=== PATIENT | female | born 1970 | race Two or more races ===

== ENCOUNTER 2020-11-11 11:30 | Outpatient (REF) | payer MEDICAID, SELFPAY ==
--- NOTE | ~2020-11-11 | MM_ITS ---
EXAMINATION: MM SCREENING DIGITAL BREAST TOMOSYNTHESIS, BILATERAL CLINICAL INFORMATION: Screening. Asymptomatic. The lifetime risk of breast cancer based on the Tyrer-Cuzick Model is 7%. COMPARISON: Mammography: 02/26/2019, 02/09/2018, 02/07/2017 TECHNIQUE: Digital breast tomosynthesis is performed in both the craniocaudal and mediolateral oblique views along with computer-aided detection (CAD). Synthesized 2D images are generated from the tomosynthesis. FINDINGS: There are scattered areas of fibroglandular density (ACR BI-RADS breast composition Category b). There are no significant masses, abnormal calcifications, or other abnormalities. There are incidental benign scattered bilateral round and rim calcifications. The axilla and skin contours are unremarkable. MM/MM tomosynthesis screening BI IMPRESSION: No mammographic evidence of malignancy. ASSESSMENT: BI-RADS 2: Benign RECOMMENDATION: Routine annual mammography screening. This patient's information was entered into a reminder system with a target due date for their next mammogram.
== END 2020-11-11 11:31 | disposition home or self-care (01) ==
LOC: HO.MAMMO 11:30
PROVIDERS: Visit Provider Internal Medicine
DX: Z12.31 Encounter for screening mammogram for malignant neoplasm of breast (principal)
CPT/HCPCS: 77063; 77067

== ENCOUNTER 2021-02-12 09:52 | Outpatient (REF) | payer MEDICAID, SELFPAY ==
[2021-02-12 11:06] LABS: MANUAL DIFF FLAG NO
[2021-02-12 11:11] LABS: Basophils Percent Auto 0.5 % (0-2); Eosinophils Absolute Auto 0.1 X10*3/uL (0.0-0.4); Eosinophils Percent Auto 1.8 % (0-4); Hematocrit 34.6 % (37-47); Hemoglobin 10.7 g/dl (12.0-16.0); Imm Gran Abs Auto 0.03 X10*3/uL (0.00-0.03); Imm Gran Pct Auto 0.4 % (0.0-0.4); Lymphocytes Absolute Auto 1.1 X10*3/uL (1.2-4.9); Lymphocytes Percent Auto 14.7 % (20-40); Mean Corpuscular HGB Conc 30.9 g/dl (31.0-35.0); Mean Corpuscular Hemoglobin 25.2 pg (27.0-33.0); Mean Corpuscular Volume 81.6 fL (80-98); Mean Platelet Volume 9.4 fL (9.4-12.3); Monocytes Absolute Auto 0.4 X10*3/uL (0.1-1.2); Neutrophils Absolute Auto 5.9 X10*3/uL (2.0-8.3); Neutrophils Percent Auto 77.6 % (45-73); Platelet Count 363 X10*3/uL (160-400); Red Blood Count 4.24 X10*6/uL (4.20-5.50); Red Cell Distribution Width 13.6 % (11.0-16.0); White Blood Count 7.6 X10*3/uL (4.8-10.8)
[2021-02-12 11:38] LABS: Alanine Aminotransferase 12 U/L (0-31); Albumin Level 4.3 g/dL (3.5-5.0); Alkaline Phosphatase 71 U/L (39-117); Anion Gap 13 (12-20); Aspartate Amino Transferase 12 U/L (5-31); Bilirubin Total 0.9 mg/dL (0.0-1.0); Blood Urea Nitrogen 10 mg/dL (9-16); Calcium 9.9 mg/dL (8.4-10.2); Carbon Dioxide 26 mmol/L (22-29); Chloride 107 mmol/L (96-108); Cholesterol 192 mg/dL; Estimated Glomerular Filt Rate > 60; Glucose Random 98 mg/dL (60-115); HDL Cholesterol 56 mg/dL; LDL Cholesterol Calculated 116 mg/dl; Potassium 5.1 mmol/L (3.3-5.1); Sodium 141 mmol/L (135-145); Total Protein 6.9 g/dL (6.5-8.0); Triglycerides 100 mg/dL
== END 2021-02-12 09:53 | disposition home or self-care (01) ==
LOC: HO.LAB 09:52
PROVIDERS: PCP Internal Medicine; Visit Provider Internal Medicine
DX: D50.8 Other iron deficiency anemias (principal); E78.00 Pure hypercholesterolemia, unspecified
CPT/HCPCS: 36415; 80053; 80061; 85025

== ENCOUNTER 2021-03-17 14:31 | Outpatient (REF) | payer MEDICAID, SELFPAY ==
[2021-03-18 04:03] LABS: CT PCR NOT DETECTED (Not Detect.); NG PCR NOT DETECTED (Not Detect.)
[2021-03-18 10:00] LABS: BV Int Neg Control Negative (Negative); BV Int Pos Control Positive (Positive)
[2021-03-19 20:22] LABS: HPV mRNA E6/E7 rflx Not Detected (Not Detected)
== END 2021-03-17 14:32 | disposition home or self-care (01) ==
LOC: HO.LAB 14:31
PROVIDERS: Visit Provider Advanced Practice Midwife
DX: Z01.419 Encounter for gynecological examination (general) (routine) without abnormal findings (principal); Z12.4 Encounter for screening for malignant neoplasm of cervix; Z20.2 Contact with and (suspected) exposure to infections with a predominantly sexual mode of transmission; Z87.42 Personal history of other diseases of the female genital tract
CPT/HCPCS: 87480; 87491; 87510; 87591; 87624; 87660; 88142

== ENCOUNTER 2021-04-20 21:30 | Emergency (ER) | payer MEDICAID, SELFPAY ==
--- NOTE | ~2021-04-20 | XR_ITS ---
EXAMINATION: XR CHEST CLINICAL INFORMATION: Chest tightness COMPARISON: None TECHNIQUE: Frontal view of the chest was obtained. FINDINGS: No significant abnormality is noted involving the heart, lungs, mediastinum, bony thorax or soft tissues. XR/XR chest 1V IMPRESSION: Unremarkable examination.
[2021-04-20 21:36] VITALS: BP 138/91; PULSE 79; RESP 20; TEMP 36.9; O2SAT 100; BMI 30.1
--- NOTE | 2021-04-20 23:39 | ED_ITS ---
HPI - Anxiety General Chief Complaint: Anxiety Stated Complaint: chest tightness Time Seen by Provider: 04/20/21 21:54 Source: patient Mode of arrival: ambulatory Limitations: no limitations History of Present Illness HPI narrative: 50 y/o female with history fo depression and anxiety presents to the ER with acute onset of an anxiety attack that happened about 3 hours ago. She states she has been under a lot of stress lately and she is very anxious about COVID-19. She has not been vaccinated and is worried about the effects of the vaccine. She has not had an anxiety attack in several months but overall her depression and anxiety have been worsening. She was recently prescribed PRN hydroxyzine that she took when the anxiety started around 8:50pm. Her symptoms started improving shortly after. She reports at the time of the attack she had rapid breathing, chest tightness and racing heart. All of which have resolved completely. MD complaint: anxiety Onset (ago): hour(s) Symptoms: dyspnea, chest pain and palpitations Severity: moderate Quality: improving Place: home History of similar episodes: Yes Provoking factors: emotional stress Relieving factors: medication Exacerbating factors: nothing Associated symptoms: denies other symptoms Related Data Home Medications Medication Instructions Recorded Confirmed ferrous sulfate 325 mg (65 mg 325 mg PO DAILY 03/17/21 03/17/21 iron) tablet,delayed release fluoxetine 10 mg tablet 10 mg PO DAILY 03/17/21 03/17/21 ibuprofen 800 mg tablet 800 mg PO Q8H 03/17/21 03/17/21 Allergies Allergy/AdvReac Type Severity Reaction Status Date / Time No Known Allergies Allergy Verified 04/20/21 21:43 Review of Systems Review of Systems: Constitutional: No Fever, No Chills Cardiovascular: No Chest Pain, No SOB Respiratory: No Cough, No Sputum, No Wheezing, No dyspnea Gastrointestinal: No Nausea, No Vomiting, No abdominal Pain Musculoskeletal: No joint pain, No Myalgias Skin: No Skin Lesions, No rash Neuro: No Weakness, No Numbness Psych: + Anxiety/Panic, + Depression, No SI Heme/Lymph: No Bruising, No Lymphadenopathy PMFSH Past Medical History Medical History (Updated 04/20/21 @ 23:41 by BESSIE Machado) Anemia Anxiety Depression HTN (hypertension) Surgical History History of cholecystectomy Social History Social History (Updated 03/17/21 @ 14:49 by Kerry Talbot [facility]) Alcohol intake: never Patient Tobacco Use Status: Never used Tobacco Advance Directives: No Advance Directives Information Provided: No Patient : No Gender identity: female Physical Exam Vital Signs: Vital Signs: Last Vital Signs Temp 98.5 F 04/20/21 21:36 Pulse 79 04/20/21 21:36 Resp 20 04/20/21 21:36 BP 138/91 H 04/20/21 21:36 Pulse Ox 100 04/20/21 21:36 Body Mass Index 30.1 Appearance: Alert. Oriented X3. No acute distress. Eyes: Pupils equal, round and reactive to light. ENT: Pharynx normal. Neck: Normal inspection. Neck supple. CVS: Normal heart rate and rhythm. Pulses normal. No chest wall tenderness Respiratory: No respiratory distress. Breath sounds normal. Skin: Skin warm and dry. Normal skin color. Normal skin turgor. No rashes. Extremities: No lower extremity edema. Neuro: Oriented X 3. No motor deficit. No sensory deficit. Speaks in complete sentences. Course Course Course Narrative: 50 y/o female presenting to the ER with acute anxiety attack, now resolved after hydroxyzine. She appears well. CXR is normal. Doubt cardiac etiology, no risk factors, no current symptoms. She is stable for discharge home with plans to f/u with her therapist and provider for possible uptitration of her antidepressant. Patient agreeable with plan. Critical Care Time Critical Care Time Critical Care Time: No Discharge Plan Discharge Clinical Impression: Acute anxiety Patient Disposition: Home, Self-Care Instructions: Anxiety (ED) Additional Instructions: Your symptoms were most likely due to anxiety attack. After your took your medication for anxiety, Hydroxyzine your symptoms improved. Continue to take this medication as needed for anxiety. Recommend following up with your doctor and your therapist. Recommend getting the COVID vaccination. Prescriptions: No Action ibuprofen 800 mg tablet 800 mg PO Q8H RF: 0 ferrous sulfate 325 mg (65 mg iron) tablet,delayed release (DR/EC) 325 mg PO DAILY RF: 0 fluoxetine 10 mg tablet 10 mg PO DAILY RF: 0 Referrals: Hawa Sinclair MD [Primary Care Provider] - 2 days (anxiety)
== END 2021-04-20 23:55 | disposition home or self-care (01) ==
PROVIDERS: Emergency Provider Student in an Organized Health Care Education/Training Program; PCP Internal Medicine
DX: F41.9 Anxiety disorder, unspecified (principal); I10 Essential (primary) hypertension
CPT/HCPCS: 71045; 99283

== ENCOUNTER 2021-10-18 18:16 | Emergency (ER) | payer MEDICAID, SELFPAY ==
[2021-10-18 18:20] VITALS: BP 149/85; PULSE 89; RESP 18; TEMP 36.6; O2SAT 97; BMI 31.8
--- NOTE | 2021-10-18 18:58 | ED.GENADULT ---
HPI - General Adult General Chief complaint: Ear Problems Stated complaint: fb stuck in ear Time Seen by Provider: 10/18/21 18:31 Source: patient Mode of arrival: ambulatory Limitations: no limitations History of Present Illness HPI narrative: 50-year-old female presents to the ED for possible foreign body in right ear. Patient states she was taking a shower and cleaning her ears with a Q-tip she thinks part of the Q-tip remain in her right ear. Patient denies any ear pain or loss of hearing. Patient states no other complaints Related Data Home Medications Medication Instructions Recorded Confirmed ferrous sulfate 325 mg (65 mg 325 mg PO DAILY 03/17/21 03/17/21 iron) tablet,delayed release fluoxetine 10 mg tablet 10 mg PO DAILY 03/17/21 03/17/21 ibuprofen 800 mg tablet 800 mg PO Q8H 03/17/21 03/17/21 Allergies Allergy/AdvReac Type Severity Reaction Status Date / Time No Known Allergies Allergy Verified 10/18/21 18:20 Review of Systems Review of Systems: Foreign body in right ear Yes all other systems are reviewed and are negative [facility] Past Medical History Medical History (Updated 10/18/21 @ 19:09 by BESSIE Franco) Anemia Anxiety Depression HTN (hypertension) Surgical History History of cholecystectomy Social History Social History (Updated 03/17/21 @ 14:49 by Kerry Talbot CMA) Alcohol intake: never Patient Tobacco Use Status: Never used Tobacco Advance Directives: No Advance Directives Information Provided: No Gender identity: Female Physical Exam Vital Signs: Vital Signs: Last Vital Signs Temp 97.9 F 10/18/21 18:20 Pulse 89 10/18/21 18:20 Resp 18 10/18/21 18:20 BP 149/85 H 10/18/21 18:20 Pulse Ox 97 10/18/21 18:20 BMI result Body Mass Index 31.8 Const: General: cooperative, healthy appearing, comfortable, no acute distress and well developed Orientation/consciousness: oriented to person, oriented to place, oriented to time and patient oriented x3 HENMT: Other: Both ears negative for qtip or any other foreign object. Head: Yes normal to inspection, Yes No palpable skull fracture present, Yes normocephalic and Yes atraumatic Ears: hearing grossly normal bilaterally, external ears normal, TM's normal bilaterally, TM normal on the right, EAC's normal, mastoids normal and no periauricular adenopathy Eyes: General: appearance normal, both eyes and all related structures Neck: Neck: Yes normal visual inspection, Yes full ROM, Yes no lymphadenopathy, Yes no meningeal signs, Yes trachea midline, Yes supple, No anterior neck swelling and No tender Chest: Chest palpation & inspection: normal inspection of the chest and normal palpation of entire chest wall Resp: Effort & Inspection: normal respiratory effort and able to speak in complete sentences Auscultation: clear to auscultation bilaterally Cardio: Jugular venous distension: no JVD Heart sounds: S1 normal heart sound present and S2 normal heart sound present GI: Inspection: Yes normal to inspection and No abdominal wall ecchymosis Palpation (GI): Soft to palpation, not firm, nontender, no guarding and not rigid : General: No CVA tenderness and Yes no CVA tenderness Back/Spine/Pelvis: Back: no CVA tenderness, No CVA tenderness and No back tenderness Skin: General skin exam: no rashes or lesions noted and elasticity normal Neuro: General: oriented to person, oriented to place, oriented to time, patient oriented x3, gait normal, tone normal, moves all extremities, Normal light touch and pain sensation, no meningeal signs, no focal motor deficits and CN's II-XI intact bilaterally Extrem: General: Yes normal to inspection and Yes full ROM Psych: Appearance: grossly normal, well kempt and not disheveled Course Course Course Narrative: Ear examined Reevaluation(s) Reevaluation #1: Ear was examined many times to make sure there was no foreign body. Physical exam does not indicate any foreign body. Patient is safe for discharge. Most likely water took q tip out while in the shower Time: 19:05 Medical Decision Making MDM Narrative Medical decision making narrative: normal exam Discharge Plan Discharge Clinical Impression: Normal ear exam Patient Disposition: Home, Self-Care Instructions: Normal Exam (ED) Additional Instructions: Your ear exam is normal. Return to the ED for any ear pain, loss of hearing, ear discharge, fever, chills, headache, redness outside Ear, or any other concerning symptoms. Please follow up with PCP. Prescriptions: No Action ibuprofen 800 mg tablet 800 mg PO Q8H RF: 0 ferrous sulfate 325 mg (65 mg iron) tablet,delayed release (DR/EC) 325 mg PO DAILY RF: 0 fluoxetine 10 mg tablet 10 mg PO DAILY RF: 0 Interventions: ED Discharge Assessment Last Done: 10/18/21 19:22 Discharge Date/Time: 10/18/21 19:23 Print Language: Hungarian
== END 2021-10-18 19:23 | disposition home or self-care (01) ==
LOC: HO.ED 19:17
PROVIDERS: Emergency Provider Emergency Medicine; PCP Internal Medicine
DX: Z03.823 Encounter for observation for suspected inserted (injected) foreign body ruled out (principal)
CPT/HCPCS: 99283; 99284

== ENCOUNTER 2021-12-13 10:30 | Outpatient (REF) | payer MEDICAID, SELFPAY ==
--- NOTE | ~2021-12-13 | MM_ITS ---
EXAMINATION: MM SCREENING DIGITAL BREAST TOMOSYNTHESIS, BILATERAL CLINICAL INFORMATION: Screening. Asymptomatic. The lifetime risk of breast cancer based on the Tyrer-Cuzick Model is 6.1%. COMPARISON: Mammography: November 11, 2020 and studies dating back to December 07, 2013 TECHNIQUE: Digital breast tomosynthesis is performed in both the craniocaudal and mediolateral oblique views along with computer-aided detection (CAD). Synthesized 2D images are generated from the tomosynthesis. FINDINGS: There are scattered areas of fibroglandular density (ACR BI-RADS breast composition Category b). There are no significant masses, abnormal calcifications, or other abnormalities. MM/MM tomosynthesis screening BI IMPRESSION: There are no significant changes from prior study. ASSESSMENT: BI-RADS 1: Negative RECOMMENDATION: Routine annual mammography screening. This patient's information was entered into a reminder system with a target due date for their next mammogram.
== END 2021-12-13 10:31 | disposition home or self-care (01) ==
LOC: HO.MAMMO 10:30
PROVIDERS: PCP Internal Medicine; Visit Provider Internal Medicine
DX: Z12.31 Encounter for screening mammogram for malignant neoplasm of breast (principal)
CPT/HCPCS: 77063; 77067

== ENCOUNTER 2022-03-16 01:30 | Emergency (ER) | payer MEDICAID, SELFPAY ==
--- NOTE | 2022-03-16 | ECG_ITS ---
Test Reason : CHEST DISCOMFORT Blood Pressure : / mmHG Vent. Rate : 090 BPM Atrial Rate : 090 BPM P-R Int : 146 ms QRS Dur : 080 ms QT Int : 350 ms P-R-T Axes : 024 044 050 degrees QTc Int : 428 ms Normal sinus rhythm Normal ECG When compared to the previous EKG of No significant changes seen Referred By: Generic ED Physician Electronically Signed By:GUERRERO RIOS MD
--- NOTE | ~2022-03-16 | XR_ITS ---
EXAMINATION: XR CHEST CLINICAL INFORMATION: Cough. COMPARISON: None TECHNIQUE: Frontal view of the chest was obtained. FINDINGS: Normal appearance of the cardiomediastinal structures. No effusions or pneumothoraces. Normal pattern of pulmonary vasculature. No focal pulmonary consolidation. XR/XR chest 1V IMPRESSION: *No acute cardiopulmonary abnormalities.
[2022-03-16 01:33] VITALS: BP 141/79; PULSE 92; RESP 18; TEMP 36.8; O2SAT 98; BMI 31.8
[2022-03-16 02:02] LABS: COVID-19 Test Negative (Negative); IDNOW Serial# 16C4AD1C; Influenza A Negative (Negative); Influenza B2 Negative (Negative)
[2022-03-16 02:08] LABS: MANUAL DIFF FLAG NO
[2022-03-16 02:09] LABS: Basophils Percent Auto 0.5 % (0-2); Eosinophils Absolute Auto 0.4 X10*3/uL (0.0-0.4); Eosinophils Percent Auto 4.9 % (0-4); Hematocrit 38.2 % (37.0-47.0); Hemoglobin 12.7 g/dl (12.0-16.0); Imm Gran Pct Auto 1.3 % (0.0-0.4); Lymphocytes Absolute Auto 1.5 X10*3/uL (1.2-4.9); Lymphocytes Percent Auto 20.1 % (20-40); Mean Corpuscular HGB Conc 33.2 g/dl (31.0-35.0); Mean Corpuscular Hemoglobin 30.2 pg (27.0-33.0); Mean Corpuscular Volume 90.7 fL (80.0-98.0); Mean Platelet Volume 8.6 fL (9.4-12.3); Monocytes Absolute Auto 0.6 X10*3/uL (0.1-1.2); Monocytes Percent Auto 7.4 % (2-11); Neutrophils Percent Auto 65.8 % (45-73); Platelet Count 338 X10*3/uL (160-400); Red Blood Count 4.21 X10*6/uL (4.20-5.50); Red Cell Distribution Width 13.5 % (11.0-16.0); White Blood Count 7.6 X10*3/uL (4.8-10.8)
[2022-03-16 02:27] LABS: Troponin-I High Sensitivity < 3.5 ng/L (<3.5-17.0)
[2022-03-16 02:29] LABS: Alanine Aminotransferase 17 U/L (0-31); Albumin Level 4.2 g/dL (3.5-5.0); Alkaline Phosphatase 97 U/L (39-117); Anion Gap 12 (12-20); Aspartate Amino Transferase 18 U/L (5-31); Bilirubin Total 0.2 mg/dL (0.0-1.0); Blood Urea Nitrogen 14 mg/dL (9-16); Carbon Dioxide 27 mmol/L (22-29); Chloride 105 mmol/L (96-108); Creatinine Clr Calc Pharmacy 90.8; Estimated Glomerular Filt Rate > 60; Glucose Random 109 mg/dL (60-115); Potassium 3.8 mmol/L (3.3-5.1); Sodium 140 mmol/L (135-145); Total Protein 7.1 g/dL (6.5-8.0)
[2022-03-16 04:42] VITALS: BP 129/88; PULSE 74; RESP 16; TEMP 36.7; O2SAT 100
--- NOTE | 2022-03-16 07:16 | ED_ITS ---
HPI - URI/Sore Throat General Chief Complaint: Upper Respiratory Symptoms Stated Complaint: chest pain, cough, congestion, headache Time Seen by Provider: 03/16/22 07:16 Source: patient Mode of arrival: ambulatory Limitations: no limitations History of Present Illness MD elicited complaint: cough, rhinorrhea and nasal congestion Onset (ago): day(s) (3) Consistency: constant and progressively worsening Severity: moderate Description of mucous: clear Able to tolerate fluids by mouth: Yes Exacerbating factors: other (coughing) Relieving factors: nothing Associated symptoms: chills, headache, rhinorrhea and cough Treatments prior to arrival: none Related Data Home Medications Medication Instructions Recorded Confirmed ferrous sulfate 325 mg (65 mg 325 mg PO DAILY 03/17/21 03/17/21 iron) tablet,delayed release fluoxetine 10 mg tablet 10 mg PO DAILY 03/17/21 03/17/21 ibuprofen 800 mg tablet 800 mg PO Q8H 03/17/21 03/17/21 Previous Rx's Medication Instructions Recorded azithromycin 250 mg tablet See Rx Instructions PO .COMPLEX #6 03/16/22 tabs Allergies Allergy/AdvReac Type Severity Reaction Status Date / Time No Known Allergies Allergy Verified 10/18/21 18:20 Review of Systems Review of Systems: Constitutional : no Fever, positive Chills, positive fatigue, positive Malaise ENT/Mouth : positive sore throat, positive runny nose Eyes: No Discharge Cardiovascular : pos Chest Pain, No SOB Respiratory : pos Cough, pos Sputum Gastrointestinal : No Nausea, No Vomiting, No Diarrhea Genitourinary : No Dysuria, No Urinary Frequency Musculoskeletal : positive Myalgia Skin : No rash Neuro : No Headache All other systems reviewed and are negative [facility] Past Medical History Attestation statement: The following information was validated with the patient. Medical History Anemia Anxiety Depression HTN (hypertension) Surgical History History of cholecystectomy Social History Social History Alcohol intake: never Patient Tobacco Use Status: Never used Tobacco Use of substances other than those prescribed or required for medical reasons: No Advance Directives: No Gender identity: Female Physical Exam Vital Signs: Vital Signs: Last Vital Signs Temp 98.5 F 03/16/22 07:20 Pulse 78 03/16/22 07:20 Resp 12 03/16/22 07:20 BP 137/84 03/16/22 07:20 Pulse Ox 99 03/16/22 07:20 O2 Del Method 03/16/22 07:20 BMI result Body Mass Index 31.8 Appearance: Alert. Oriented X3. No acute distress. Eyes: Pupils equal, round and reactive to light. ENT: Pharynx normal. Neck: Normal inspection. Neck supple. CVS: Normal heart rate and rhythm. Pulses normal. Respiratory: No respiratory distress. Breath sounds faint anterior rhonchi noted Abdomen: Soft and nontender. Skin: Skin warm and dry. Normal skin color. Normal skin turgor. Extremities: No lower extremity edema. No calf ttp Neuro: Oriented X 3. No motor deficit. No sensory deficit. MDM - URI/Sore Throat MDM Narrative Medical decision making narrative: 51 yo female no sig PMH here with 3 days of productive cough not toxic no hypo jin at this time the patient has had negative workup in the ED she is not toxic but has mucous production and rhonchi suspect bronchitis will place on [facility] and ID home. EKG trop flat from triage, doubt ACS. Lab Data Result diagrams: 03/16/22 02:03 03/16/22 02:03 Labs: Lab Results 03/16/22 03/16/22 03/16/22 Range/Units 01:40 01:40 02:03 WBC 7.6 (4.8-10.8) X10*3/uL RBC 4.21 (4.20-5.50) X10*6/uL Hgb 12.7 (12.0-16.0) g/dl Hct 38.2 (37.0-47.0) % MCV 90.7 (80.0-98.0) fL MCH 30.2 (27.0-33.0) pg MCHC 33.2 (31.0-35.0) g/dl RDW 13.5 (11.0-16.0) % Plt Count 338 (160-400) X10*3/uL MPV 8.6 L (9.4-12.3) fL Immature Gran % (Auto) 1.3 H (0.0-0.4) % Neut % (Auto) 65.8 (45-73) % Lymph % (Auto) 20.1 (20-40) % [place] % (Auto) 7.4 (2-11) % Eos % (Auto) 4.9 H (0-4) % Baso % (Auto) 0.5 (0-2) % Lymph # (Auto) 1.5 (1.2-4.9) X10*3/uL [place] # (Auto) 0.6 (0.1-1.2) X10*3/uL Eos # (Auto) 0.4 (0.0-0.4) X10*3/uL Baso # (Auto) 0.0 (0.0-0.2) X10*3/uL Abs Immat Gran (auto) 0.10 H (0.00-0.03) X10*3/uL Absolute Neuts (auto) 5.0 (2.0-8.3) x10*3/uL Absolute Nucleated RBC 0.000 (0.0-0.012) X10*3/uL Nucleated RBC % (auto) 0.0 (0.0-0.2) /100WBC Sodium (135-145) mmol/L Potassium (3.3-5.1) mmol/L Chloride (96-108) mmol/L Carbon Dioxide (22-29) mmol/L Anion Gap (12-20) BUN (9-16) mg/dL Creatinine (0.5-1.4) mg/dL Estim Creat Clear Calc Estimated GFR Random Glucose (60-115) mg/dL Calcium (8.4-10.2) mg/dL Total Bilirubin (0.0-1.0) mg/dL AST (5-31) U/L ALT (0-31) U/L Alkaline Phosphatase (39-117) U/L Troponin I High Sens (<3.5-17.0) ng/L Total Protein (6.5-8.0) g/dL Albumin (3.5-5.0) g/dL COVID-19 (FRANTZ) Negative (Negative) COVID-19 Clin Com See Note Influenza Type A (TANISHA) Negative (Negative) Influenza Type B (TANISHA) Negative (Negative) Influenza A & B Note See Note 03/16/22 03/16/22 Range/Units 02:03 02:03 WBC (4.8-10.8) X10*3/uL RBC (4.20-5.50) X10*6/uL Hgb (12.0-16.0) g/dl Hct (37.0-47.0) % MCV (80.0-98.0) fL MCH (27.0-33.0) pg MCHC (31.0-35.0) g/dl RDW (11.0-16.0) % Plt Count (160-400) X10*3/uL MPV (9.4-12.3) fL Immature Gran % (Auto) (0.0-0.4) % Neut % (Auto) (45-73) % Lymph % (Auto) (20-40) % [place] % (Auto) (2-11) % Eos % (Auto) (0-4) % Baso % (Auto) (0-2) % Lymph # (Auto) (1.2-4.9) X10*3/uL [place] # (Auto) (0.1-1.2) X10*3/uL Eos # (Auto) (0.0-0.4) X10*3/uL Baso # (Auto) (0.0-0.2) X10*3/uL Abs Immat Gran (auto) (0.00-0.03) X10*3/uL Absolute Neuts (auto) (2.0-8.3) x10*3/uL Absolute Nucleated RBC (0.0-0.012) X10*3/uL Nucleated RBC % (auto) (0.0-0.2) /100WBC Sodium 140 (135-145) mmol/L Potassium 3.8 D (3.3-5.1) mmol/L Chloride 105 (96-108) mmol/L Carbon Dioxide 27 (22-29) mmol/L Anion Gap 12 (12-20) BUN 14 (9-16) mg/dL Creatinine 0.75 (0.5-1.4) mg/dL Estim Creat Clear Calc 90.8 Estimated GFR > 60 Random Glucose 109 (60-115) mg/dL Calcium 10.0 (8.4-10.2) mg/dL Total Bilirubin 0.2 (0.0-1.0) mg/dL AST 18 D (5-31) U/L ALT 17 (0-31) U/L Alkaline Phosphatase 97 D (39-117) U/L Troponin I High Sens < 3.5 (<3.5-17.0) ng/L Total Protein 7.1 (6.5-8.0) g/dL Albumin 4.2 (3.5-5.0) g/dL COVID-19 (FRANTZ) (Negative) COVID-19 Clin Com Influenza Type A (TANISHA) (Negative) Influenza Type B (TANISHA) (Negative) Influenza A & B Note ECG Data Attestation: I personally reviewed and interpreted this ECG as follows: ECG interpretation date: 03/16/22 ECG interpretation time: 07:27 Interpretation: Rate: 90 Rhythm: NSR Lane: normal Normal P waves. Normal LYNDSEY. Normal QRS complex. ST T wave : normal no FRANCO qTC: normal prior studies: no acute ischemia The study has been interpreted contemporaneously by me. . Discharge Plan Discharge Clinical Impression: Bronchitis Patient Disposition: Home, Self-Care Instructions: Acute Bronchitis (ED) Additional Instructions: return to ED for any worsening symptoms or concerns Prescriptions: New azithromycin 250 mg tablet See Rx Instructions .ROUTE .COMPLEX Qty: 6 0RF Rx Instructions: For 250 mg dose pack: take 500 mg today (day 1), then 250 mg for 4 days (days 2-5) No Action ibuprofen 800 mg tablet 800 mg PO Q8H ferrous sulfate 325 mg (65 mg iron) tablet,delayed release (DR/EC) 325 mg PO DAILY fluoxetine 10 mg tablet 10 mg PO DAILY Referrals: Hawa Sinclair MD [Primary Care Provider] - 2 days (if not better) Print Language: Indonesian
[2022-03-16 07:20] VITALS: BP 137/84; PULSE 78; RESP 12; TEMP 36.9; O2SAT 99
== END 2022-03-16 07:30 | disposition home or self-care (01) ==
PROVIDERS: Emergency Provider Emergency Medicine; PCP Internal Medicine
DX: J40 Bronchitis, not specified as acute or chronic (principal); R05.9 Cough, unspecified; R07.89 Other chest pain; R51.9 Headache, unspecified; Z20.822 Contact with and (suspected) exposure to COVID-19; Z79.899 Other long term (current) drug therapy
CPT/HCPCS: 71045; 80053; 84484; 85025; 87502; 87635; 93005; 99283; 99284

== ENCOUNTER 2022-06-06 22:37 | Emergency (ER) | payer MEDICAID, SELFPAY ==
[2022-06-06 23:43] VITALS: BP 124/86; PULSE 86; RESP 18; TEMP 36.7; O2SAT 99; BMI 30.5
--- NOTE | 2022-06-06 23:48 | ECG_ITS ---
Test Reason : CHEST PRESSURE Blood Pressure : / mmHG Vent. Rate : 076 BPM Atrial Rate : 076 BPM P-R Int : 170 ms QRS Dur : 078 ms QT Int : 370 ms P-R-T Axes : 036 055 048 degrees QTc Int : 416 ms Normal sinus rhythm Normal ECG When compared with ECG of 16-MAR-2022 01:40, No significant change was found Referred By: Generic ED Physician Electronically Signed By:CRISTI LORENZO
--- NOTE | 2022-06-06 23:50 | PC.NURSE ---
Pt alert, oriented, skin warm and dry and conversing in full and complete sentences without distress noted. Pt currently in triage receiving EKG, she reports improvement in chest tightness, shortness of breath and nervousness since arrival. Pt unsure of medication name (states prescribed for anxiety/panic attacks) and RN could not verify/confirm through external med inventory.
[2022-06-07 00:06] LABS: Basophils Absolute Auto 0.1 X10*3/uL (0.0-0.2); Basophils Percent Auto 0.7 % (0-2); Eosinophils Absolute Auto 0.2 X10*3/uL (0.0-0.4); Eosinophils Percent Auto 2.6 % (0-4); Hematocrit 40.7 % (37.0-47.0); Hemoglobin 13.9 g/dl (12.0-16.0); Imm Gran Abs Auto 0.03 X10*3/uL (0.00-0.03); Imm Gran Pct Auto 0.3 % (0.0-0.4); Lymphocytes Absolute Auto 1.4 X10*3/uL (1.2-4.9); Lymphocytes Percent Auto 15.9 % (20-40); MANUAL DIFF FLAG NO; Mean Corpuscular HGB Conc 34.2 g/dl (31.0-35.0); Mean Corpuscular Hemoglobin 31.7 pg (27.0-33.0); Mean Corpuscular Volume 92.7 fL (80.0-98.0); Mean Platelet Volume 8.9 fL (9.4-12.3); Monocytes Absolute Auto 0.5 X10*3/uL (0.1-1.2); Monocytes Percent Auto 5.1 % (2-11); Neutrophils Absolute Auto 6.8 x10*3/uL (2.0-8.3); Neutrophils Percent Auto 75.4 % (45-73); Platelet Count 339 X10*3/uL (160-400); Red Blood Count 4.39 X10*6/uL (4.20-5.50)
[2022-06-07 00:25] LABS: Alanine Aminotransferase 15 U/L (0-31); Albumin Level 4.5 g/dL (3.5-5.0); Alkaline Phosphatase 62 U/L (39-117); Anion Gap 14 (12-20); Aspartate Amino Transferase 14 U/L (5-31); Bilirubin Total 0.3 mg/dL (0.0-1.0); Blood Urea Nitrogen 14 mg/dL (9-16); Calcium 9.8 mg/dL (8.4-10.2); Carbon Dioxide 26 mmol/L (22-29); Chloride 105 mmol/L (96-108); Creatinine Clr Calc Pharmacy 81.2; Estimated Glomerular Filt Rate > 60; Glucose Random 125 mg/dL (60-115); Potassium 3.8 mmol/L (3.3-5.1); Sodium 141 mmol/L (135-145); Total Protein 7.1 g/dL (6.5-8.0)
[2022-06-07 00:39] LABS: Troponin-I High Sensitivity < 3.5 ng/L (<3.5-17.0)
--- NOTE | 2022-06-07 02:19 | ED.GENADULT ---
HPI - General Adult General Chief complaint: General Medical Stated complaint: chest pressure,cold sweats Time Seen by Provider: 06/07/22 00:54 Source: patient Mode of arrival: ambulatory Limitations: no limitations History of Present Illness HPI narrative: patient with a history of panic attacks, she took her medication and she had chest tightness and heart racing and she had shortness of breath. Patient is taking a medication for depression for over a year. Onset (ago): hour(s) Location: chest and abdomen Severity: mild Quality: aching Relieving factors: none Related Data Home Medications Medication Instructions Recorded Confirmed ferrous sulfate 325 mg (65 mg 325 mg PO DAILY 03/17/21 03/17/21 iron) tablet,delayed release fluoxetine 10 mg tablet 10 mg PO DAILY 03/17/21 03/17/21 ibuprofen 800 mg tablet 800 mg PO Q8H 03/17/21 03/17/21 Previous Rx's Medication Instructions Recorded azithromycin 250 mg tablet See Rx Instructions PO .COMPLEX #6 03/16/22 tabs Allergies Allergy/AdvReac Type Severity Reaction Status Date / Time No Known Allergies Allergy Verified 06/06/22 23:43 Review of Systems Constitutional: Constitutional: Reports no additional constitutional complaints Eyes: Eyes: Reports no additional eye complaints ENT: Denies dizziness Cardiovascular: Cardiovascular: Reports no additional cardiovascular complaints Respiratory: Respiratory: Reports as per HPI Gastrointestinal: Gastrointestinal: Reports no additional gastrointestinal complaints Genitourinary: Genitourinary: Reports no additional female genitourinary complaints Musculoskeletal: Musculoskeletal: Reports no additional musculoskeletal complaints Integumentary/Breasts: Skin/Breast: Denies rash Neurologic: Reports system reviewed and no additional complaints, except as documented, Denies dizziness and Denies Sensory deficit (Neuro) Psychiatric: Psychiatric: Denies anxiety PMFSH Past Medical History Medical History Anemia Anxiety Depression HTN (hypertension) Surgical History History of cholecystectomy Social History Social History Alcohol intake: never Patient Tobacco Use Status: Never used Tobacco Advance Directives: No Gender identity: Female Physical Exam ED Vital Signs: Vital Signs - 24 hr 06/06/22 23:43 Temperature 98.1 F Pulse Rate 86 Respiratory Rate 18 Blood Pressure 124/86 Pulse Oximetry 99 Oxygen Delivery Method Room Air BMI result Body Mass Index 30.5 Const General: healthy appearing Nutritional Appearance: average body habitus Orientation/consciousness: oriented to person and patient oriented x3 Limitations: no limitations HENMT Head: Yes normal to inspection Ears: external ears normal General nose exam: Normal external nose present Mouth: Normal oral and palatal mucosa present and oropharynx normal Throat: Yes posterior oropharynx normal Eyes General: appearance normal, both eyes and all related structures Neck Neck: Yes normal visual inspection Chest Chest palpation & inspection: normal inspection of the chest Resp Auscultation: clear to auscultation bilaterally Cardio Jugular venous distension: no JVD Rate: regular rate Rhythm: regular rhythm Heart sounds: S1 normal heart sound present and S2 normal heart sound present GI Inspection: Yes normal to inspection Palpation (GI): Soft to palpation, nontender and No hepatosplenomegaly present Auscultation: normal bowel sounds General: Yes no CVA tenderness Back/Spine/Pelvis Back: no CVA tenderness Skin General skin exam: no rashes or lesions noted Neuro General: oriented to person and patient oriented x3 Cranial nerves: Yes CN's II-XII intact bilaterally Motor exam (neuro): 5/5 motor strength present throughout Sensory Exam: No Sensory deficit (Neuro) Extrem General: Yes normal to inspection Psych Appearance: grossly normal Course Reevaluation(s) Reevaluation #1: patient looking well cardiac work up negative will dc home Time: 02:28 Medical Decision Making Lab Data Result diagrams: 06/06/22 23:59 06/06/22 23:59 Labs: Lab Results 06/06/22 06/06/22 06/06/22 Range/Units 23:59 23:59 23:59 WBC 9.0 (4.8-10.8) X10*3/uL RBC 4.39 (4.20-5.50) X10*6/uL Hgb 13.9 (12.0-16.0) g/dl Hct 40.7 (37.0-47.0) % MCV 92.7 (80.0-98.0) fL MCH 31.7 (27.0-33.0) pg MCHC 34.2 (31.0-35.0) g/dl RDW 13.0 (11.0-16.0) % Plt Count 339 (160-400) X10*3/uL MPV 8.9 L (9.4-12.3) fL Immature Gran % (Auto) 0.3 (0.0-0.4) % Neut % (Auto) 75.4 H (45-73) % Lymph % (Auto) 15.9 L (20-40) % [place] % (Auto) 5.1 (2-11) % Eos % (Auto) 2.6 (0-4) % Baso % (Auto) 0.7 (0-2) % Lymph # (Auto) 1.4 (1.2-4.9) X10*3/uL [place] # (Auto) 0.5 (0.1-1.2) X10*3/uL Eos # (Auto) 0.2 (0.0-0.4) X10*3/uL Baso # (Auto) 0.1 (0.0-0.2) X10*3/uL Abs Immat Gran (auto) 0.03 (0.00-0.03) X10*3/uL Absolute Neuts (auto) 6.8 (2.0-8.3) x10*3/uL Absolute Nucleated RBC 0.000 (0.0-0.012) X10*3/uL Nucleated RBC % (auto) 0.0 (0.0-0.2) /100WBC Sodium 141 (135-145) mmol/L Potassium 3.8 (3.3-5.1) mmol/L Chloride 105 (96-108) mmol/L Carbon Dioxide 26 (22-29) mmol/L Anion Gap 14 (12-20) BUN 14 (9-16) mg/dL Creatinine 0.82 (0.5-1.4) mg/dL Estim Creat Clear Calc 81.2 Estimated GFR > 60 Random Glucose 125 H (60-115) mg/dL Calcium 9.8 (8.4-10.2) mg/dL Total Bilirubin 0.3 (0.0-1.0) mg/dL AST 14 (5-31) U/L ALT 15 (0-31) U/L Alkaline Phosphatase 62 D (39-117) U/L Troponin I High Sens < 3.5 (<3.5-17.0) ng/L Total Protein 7.1 (6.5-8.0) g/dL Albumin 4.5 (3.5-5.0) g/dL ECG Data Attestation: I personally reviewed and interpreted this ECG as follows: Interpretation: sinus rate of 76, no st or twave changes Discharge Plan Discharge Clinical Impression: Chest pain, Anxiety Patient Disposition: Home, Self-Care Instructions: Anxiety (ED), Chest Pain (DC), Noncardiac Chest Pain (ED) Prescriptions: No Action azithromycin 250 mg tablet See Rx Instructions .ROUTE .COMPLEX Qty: 6 0RF Rx Instructions: For 250 mg dose pack: take 500 mg today (day 1), then 250 mg for 4 days (days 2-5) ibuprofen 800 mg tablet 800 mg PO Q8H ferrous sulfate 325 mg (65 mg iron) tablet,delayed release (DR/EC) 325 mg PO DAILY fluoxetine 10 mg tablet 10 mg PO DAILY Referrals: Hawa Sinclair MD [Primary Care Provider] - 1 week
== END 2022-06-07 03:04 | disposition home or self-care (01) ==
PROVIDERS: Emergency Provider Emergency Medicine; PCP Internal Medicine
DX: R07.9 Chest pain, unspecified (principal); F41.9 Anxiety disorder, unspecified; I10 Essential (primary) hypertension; Z79.899 Other long term (current) drug therapy
CPT/HCPCS: 36415; 80053; 84484; 85025; 93005; 99283

== ENCOUNTER 2022-08-22 20:38 | Emergency (ER) | payer MEDICAID, SELFPAY ==
--- NOTE | ~2022-08-22 | XR_ITS ---
EXAMINATION: XR CHEST CLINICAL INFORMATION: Chest pain COMPARISON: 03/16/2022 TECHNIQUE: Frontal view of the chest was obtained. FINDINGS: No significant abnormality is noted involving the heart, lungs, mediastinum, bony thorax or soft tissues. XR/XR chest 1V IMPRESSION: Unremarkable examination.
[2022-08-22 20:44] VITALS: BP 149/99; PULSE 98; RESP 20; TEMP 36.1; O2SAT 98; BMI 28.1
--- NOTE | 2022-08-22 20:47 | ECG_ITS ---
Test Reason : CHEST PAIN Blood Pressure : / mmHG Vent. Rate : 084 BPM Atrial Rate : 084 BPM P-R Int : 166 ms QRS Dur : 076 ms QT Int : 346 ms P-R-T Axes : 046 051 052 degrees QTc Int : 408 ms Normal sinus rhythm Nonspecific ST abnormality Inferior leads Lateral leads Abnormal ECG When compared with ECG of 06-JUN-2022 23:51, No significant change was found Referred By: Generic ED Physician Electronically Signed By:ZOILA COOPER MD
[2022-08-22 21:02] LABS: MANUAL DIFF FLAG NO
[2022-08-22 21:04] LABS: Basophils Absolute Auto 0.1 X10*3/uL (0.0-0.2); Basophils Percent Auto 1.2 % (0-2); Eosinophils Absolute Auto 0.2 X10*3/uL (0.0-0.4); Eosinophils Percent Auto 3.2 % (0-4); Hematocrit 40.9 % (37.0-47.0); Hemoglobin 14.2 g/dl (12.0-16.0); Imm Gran Abs Auto 0.01 X10*3/uL (0.00-0.03); Imm Gran Pct Auto 0.2 % (0.0-0.4); Lymphocytes Absolute Auto 1.6 X10*3/uL (1.2-4.9); Lymphocytes Percent Auto 27.5 % (20-40); Mean Corpuscular HGB Conc 34.7 g/dl (31.0-35.0); Mean Corpuscular Hemoglobin 31.4 pg (27.0-33.0); Mean Corpuscular Volume 90.5 fL (80.0-98.0); Mean Platelet Volume 8.8 fL (9.4-12.3); Monocytes Absolute Auto 0.4 X10*3/uL (0.1-1.2); Monocytes Percent Auto 6.6 % (2-11); Neutrophils Absolute Auto 3.6 x10*3/uL (2.0-8.3); Neutrophils Percent Auto 61.3 % (45-73); Platelet Count 353 X10*3/uL (160-400); Red Blood Count 4.52 X10*6/uL (4.20-5.50); White Blood Count 5.9 X10*3/uL (4.8-10.8)
[2022-08-22 21:21] LABS: Anion Gap 17 (12-20); Blood Urea Nitrogen 17 mg/dL (9-16); Calcium 10.6 mg/dL (8.4-10.2); Carbon Dioxide 24 mmol/L (22-29); Chloride 106 mmol/L (96-108); Creatinine Clr Calc Pharmacy 79.1; Estimated Glomerular Filt Rate > 60; Glucose Random 107 mg/dL (60-115); Potassium 4.2 mmol/L (3.3-5.1); Sodium 143 mmol/L (135-145)
[2022-08-22 21:22] LABS: Troponin-I High Sensitivity < 3.5 ng/L (<3.5-17.0)
[2022-08-22 23:47] VITALS: BP 123/85; PULSE 70; TEMP 36.7; O2SAT 100
--- NOTE | 2022-08-22 23:49 | ED.CHESTPAIN ---
HPI - Chest Pain General Chief Complaint: Chest Pain Stated Complaint: Chest tightness/?Anxiety Time Seen by Provider: 08/22/22 23:31 Source: patient Mode of arrival: ambulatory Limitations: no limitations History of Present Illness HPI narrative: Patient's emergency room complaining anxiety, chest pressure. Patient states that prior to arrival, she had a panic attack. Patient come to the emergency room his she was okay. At this time, patient has no anxiety, no chest pain or chest pressure. Patient is asymptomatic. Prior to arrival, patient took 1 dose of hydroxyzine. Patient states that she has a therapist for anxiety. Related Data Home Medications Medication Instructions Recorded Confirmed ferrous sulfate 325 mg (65 mg 325 mg PO DAILY 03/17/21 03/17/21 iron) tablet,delayed release fluoxetine 10 mg tablet 10 mg PO DAILY 03/17/21 03/17/21 ibuprofen 800 mg tablet 800 mg PO Q8H 03/17/21 03/17/21 Previous Rx's Medication Instructions Recorded azithromycin 250 mg tablet See Rx Instructions PO .COMPLEX #6 03/16/22 tabs Allergies Allergy/AdvReac Type Severity Reaction Status Date / Time No Known Allergies Allergy Verified 08/22/22 20:46 Review of Systems Review of Systems: Constitutional : No Weight loss, No Fever, No Chills, No Night Sweats, No Fatigue, No Malaise ENT/Mouth : No Hearing loss, No Ear Pain, No Nasal Congestion, No Sinus Pain, No Hoarseness, No sore throat, No Rhinorrhea, No Swallowing Difficulty Eyes: No Eye Pain, No Swelling, No Redness, No Foreign Body, No Discharge, No Vision Changes Cardiovascular : No Chest Pain, No SOB, No Dyspnea on Exertion, No Orthopnea, No Edema, No Palpitations Respiratory : No Cough, No Sputum, No Wheezing, No Smoke Exposure, No Dyspnea Gastrointestinal : No Nausea, No Vomiting, No Diarrhea, No Constipation, No abdominal Pain, No Hematochezia, No Melena Genitourinary : no irregular bleeding, No Dysuria, No Urinary Frequency, No Hematuria, No Urinary Incontinence, No Urgency, No Flank Pain, No Urinary Flow Changes, No Hesitancy Musculoskeletal : No joint pain, No Myalgias, No Joint Swelling Skin : No Skin Lesions, No rash Neuro : No Weakness, No Numbness, No Paresthesias, No Loss of Consciousness, No Dizziness, No Headache Psych : Complaining of anxiety and panic attack that resolved after taking hydroxyzine, No Depression, No SI/HI/AH/VH, No Social Issues, Heme/Lymph: No Bruising, No Bleeding,No Lymphadenopathy Endocrine : No Polyuria, No Polydipsia, No Temperature Intolerance [facility] Past Medical History Medical History Anemia Anxiety Depression HTN (hypertension) Surgical History History of cholecystectomy Social History Social History Alcohol intake: never Patient Tobacco Use Status: Never used Tobacco Advance Directives: No Advance Directives Information Provided: Yes Gender identity: Female Physical Exam Vital Signs: Vital Signs: Last Vital Signs Temp 98.0 F 08/22/22 23:47 Pulse 70 08/22/22 23:47 Resp 20 08/22/22 20:44 BP 123/85 08/22/22 23:47 Pulse Ox 100 08/22/22 23:47 O2 Del Method 08/22/22 23:47 BMI result Body Mass Index 28.1 Const: Other: Appearance: Alert. Oriented X3. No acute distress. Eyes: Pupils equal, round and reactive to light. ENT: Pharynx normal. Neck: Normal inspection. Neck supple. No lymph nodes noted. No crepitus CVS: Normal heart rate and rhythm. Pulses normal. Normal S1 and S2 Respiratory: No respiratory distress. Breath sounds normal. No Wheezing. No rales Abdomen: Soft and nontender. No rigidity. No distention. Skin: Skin warm and dry. Normal skin color. Normal skin turgor. Extremities: No lower extremity edema. No Lacerations. No Rash Neuro: Oriented X 3. No motor deficit. No sensory deficit. Moving all extremities. No slurred speech. CN 2 through 12 grossly intact Psych: calm, cooperative, normal affect Course Course Course Narrative: Patient's labs, troponin, EKG, chest x-ray all within normal limits. Patient no longer feeling anxious. Chest pressure resolved after taking hydroxyzine and her anxiety decreased. Patient feels well to be discharged MDM - Chest Pain Lab Data Result diagrams: 08/22/22 20:52 08/22/22 20:52 Labs: Lab Results 08/22/22 08/22/22 08/22/22 Range/Units 20:52 20:52 20:52 WBC 5.9 (4.8-10.8) X10*3/uL RBC 4.52 (4.20-5.50) X10*6/uL Hgb 14.2 (12.0-16.0) g/dl Hct 40.9 (37.0-47.0) % MCV 90.5 (80.0-98.0) fL MCH 31.4 (27.0-33.0) pg MCHC 34.7 (31.0-35.0) g/dl RDW 12.0 (11.0-16.0) % Plt Count 353 (160-400) X10*3/uL MPV 8.8 L (9.4-12.3) fL Immature Gran % (Auto) 0.2 (0.0-0.4) % Neut % (Auto) 61.3 (45-73) % Lymph % (Auto) 27.5 (20-40) % [place] % (Auto) 6.6 (2-11) % Eos % (Auto) 3.2 (0-4) % Baso % (Auto) 1.2 (0-2) % Lymph # (Auto) 1.6 (1.2-4.9) X10*3/uL [place] # (Auto) 0.4 (0.1-1.2) X10*3/uL Eos # (Auto) 0.2 (0.0-0.4) X10*3/uL Baso # (Auto) 0.1 (0.0-0.2) X10*3/uL Abs Immat Gran (auto) 0.01 (0.00-0.03) X10*3/uL Absolute Neuts (auto) 3.6 (2.0-8.3) x10*3/uL Absolute Nucleated RBC 0.000 (0.0-0.012) X10*3/uL Nucleated RBC % (auto) 0.0 (0.0-0.2) /100WBC Sodium 143 (135-145) mmol/L Potassium 4.2 (3.3-5.1) mmol/L Chloride 106 (96-108) mmol/L Carbon Dioxide 24 (22-29) mmol/L Anion Gap 17 (12-20) BUN 17 H (9-16) mg/dL Creatinine 0.81 (0.5-1.4) mg/dL Estim Creat Clear Calc 79.1 Estimated GFR > 60 Random Glucose 107 (60-115) mg/dL Calcium 10.6 H D (8.4-10.2) mg/dL Troponin I High Sens < 3.5 (<3.5-17.0) ng/L Imaging Data Chest x-ray: Radiologist's impression: FINDINGS: No significant abnormality is noted involving the heart, lungs, mediastinum, bony thorax or soft tissues. XR/XR chest 1V IMPRESSION: Unremarkable examination. Discharge Plan Discharge Clinical Impression: Anxiety, Chest pressure Patient Disposition: Home, Self-Care Instructions: Anxiety (ED) Additional Instructions: Please follow-up with your primary care physician tomorrow. If you have any worsening or new symptoms, please return to the emergency room or call 911 Prescriptions: No Action azithromycin 250 mg tablet See Rx Instructions .ROUTE .COMPLEX Qty: 6 0RF Rx Instructions: For 250 mg dose pack: take 500 mg today (day 1), then 250 mg for 4 days (days 2-5) ibuprofen 800 mg tablet 800 mg PO Q8H ferrous sulfate 325 mg (65 mg iron) tablet,delayed release (DR/EC) 325 mg PO DAILY fluoxetine 10 mg tablet 10 mg PO DAILY
== END 2022-08-23 00:05 | disposition home or self-care (01) ==
PROVIDERS: Emergency Provider Emergency Medicine; PCP Internal Medicine
DX: F41.9 Anxiety disorder, unspecified (principal); R07.89 Other chest pain; F32.A Depression, unspecified; I10 Essential (primary) hypertension; Z79.899 Other long term (current) drug therapy
CPT/HCPCS: 36415; 71045; 80048; 84484; 85025; 93005; 99284

== ENCOUNTER 2022-09-02 23:03 | Emergency (ER) | payer MEDICAID, SELFPAY ==
--- NOTE | 2022-09-02 | ECG_ITS ---
Test Reason : CHEST PAIN Blood Pressure : / mmHG Vent. Rate : 078 BPM Atrial Rate : 078 BPM P-R Int : 166 ms QRS Dur : 080 ms QT Int : 362 ms P-R-T Axes : 046 027 044 degrees QTc Int : 412 ms Normal sinus rhythm Normal ECG When compared with ECG of 22-AUG-2022 20:56, No significant change was found Referred By: Generic ED Physician Electronically Signed By:GUERRERO RIOS MD
--- NOTE | ~2022-09-02 | XR_ITS ---
EXAMINATION: XR CHEST CLINICAL INFORMATION: Chest pressure. COMPARISON: Chest x-ray 08/22/2022 TECHNIQUE: Frontal view of the chest was obtained. 11:27 PM FINDINGS: No significant abnormality is noted involving the heart, lungs, mediastinum, bony thorax or soft tissues. XR/XR chest 1V IMPRESSION: Unremarkable examination.
[2022-09-02 23:09] VITALS: BP 138/86; PULSE 75; RESP 16; TEMP 36.4; O2SAT 100; BMI 28.3
--- NOTE | 2022-09-03 00:31 | ED_ITS ---
HPI - Anxiety General Chief Complaint: Chest Pain Stated Complaint: Chest pressure Time Seen by Provider: 09/03/22 00:17 Source: patient Mode of arrival: ambulatory Limitations: no limitations History of Present Illness HPI narrative: 51 yo female with hx of anxiety and panic attacks takes atarax PRN had panic attack tonight around 930pm without precipitating event. She feels her chest is tight now and wanted to get checked out. She notes the medication didn't really help. This has happened before. MD complaint: anxiety Onset (ago): hour(s) (started at 930pm) Symptoms: chest pain Severity: mild Quality: constant Place: home History of similar episodes: Yes Provoking factors: none known Relieving factors: nothing Exacerbating factors: nothing Associated symptoms: chest pain Related Data Home Medications Medication Instructions Recorded Confirmed ferrous sulfate 325 mg (65 mg 325 mg PO DAILY 03/17/21 03/17/21 iron) tablet,delayed release fluoxetine 10 mg tablet 10 mg PO DAILY 03/17/21 03/17/21 ibuprofen 800 mg tablet 800 mg PO Q8H 03/17/21 03/17/21 Previous Rx's Medication Instructions Recorded azithromycin 250 mg tablet See Rx Instructions PO .COMPLEX #6 03/16/22 tabs Allergies Allergy/AdvReac Type Severity Reaction Status Date / Time No Known Allergies Allergy Verified 08/22/22 20:46 Review of Systems Review of Systems: Constitutional : No Weight loss, No Fever, No Chills ENT/Mouth : No sore throat, No Rhinorrhea Eyes: No Eye Pain, No Swelling Cardiovascular : pos Chest Pain, no SOB, no Dyspnea on Exertion, No Orthopnea, No Edema, No Palpitations Respiratory : No Cough, No Sputum Gastrointestinal : no Nausea, No Vomiting, No Diarrhea, No abdominal Pain, No Hematochezia, No Melena Genitourinary : No Dysuria, No Urinary Frequency Musculoskeletal : No joint pain, No Myalgias, No Joint Swelling Skin : No Skin Lesions, No rash Neuro : No Weakness, No Numbness, No Dizziness, No Headache Psych : pos Anxiety/Panic, No Depression Heme/Lymph: No Bruising, No Lymphadenopathy Endocrine : No Polyuria, No Polydipsia All other systems reviewed and are negative [facility] Past Medical History Attestation statement: The following information was validated with the patient. Medical History Anemia Anxiety Depression HTN (hypertension) Surgical History History of cholecystectomy Social History Social History Alcohol intake: never Patient Tobacco Use Status: Never used Tobacco Smoked in Last 30 Days: No Use of substances other than those prescribed or required for medical reasons: No Advance Directives: No Advance Directives Information Provided: No Patient : No Gender identity: Female Physical Exam Vital Signs: Vital Signs: Last Vital Signs Temp 97.9 F 09/03/22 01:06 Pulse 77 09/03/22 01:06 Resp 12 09/03/22 01:06 BP 137/86 09/03/22 01:06 Pulse Ox 99 09/03/22 01:06 O2 Del Method 09/03/22 01:06 BMI result Body Mass Index 28.3 Appearance: Alert. Oriented X3. No acute distress. Eyes: Pupils equal, round and reactive to light. ENT: Pharynx normal. Neck: Normal inspection. Neck supple. CVS: Normal heart rate and rhythm. Pulses normal. Respiratory: No respiratory distress. Breath sounds normal. Abdomen: Soft and non-tender. Skin: Skin warm and dry. Normal skin color. Normal skin turgor. Extremities: No lower extremity edema. No calf ttp Neuro: Oriented X 3. No motor deficit. No sensory deficit. Course Course Course Narrative: negative workup stable for DC, 4 hr troponin negative. Medications Administered Discontinued Medications Generic Name Dose Route Start Last Admin Trade Name Freq PRN Reason Stop Dose Admin Lorazepam 0.5 mg 09/03/22 00:35 09/03/22 01:01 Lorazepam 0.5 Mg Tablet PO 09/03/22 00:36 0.5 mg ONCE ONE Administration Medical Decision Making Medical Decision Making MDM Narrative: 51 yo female with anxiety presents with atypical chest pain in setting of panic attack she has no ACS risk factors, distal pulses intact doubt dissection, she has no hypoxia/tachycardia or signs of DVT to suggest PE - will give PO ativan and obtain EKG, troponin x 1 and CXR if negative anticipate DC home with supportive care for anxiety. Differential Diagnoses: Differential diagnosis (anxiety, atypical chest pain) Lab Attestation: I reviewed the patient's lab results. Independent interpretation of EKG, rhythm strip, radiology study: Independent interp EKG,rhythm strip, radiology study I performed an independent interpretation of the: EKG and Plain X-Ray My interpretation is no acute findings Rate: 78 Rhythm: NSR [place]:normal Normal P waves. Normal LYNDSEY. Normal QRS complex. ST T wave : normal no FRANCO qTC: normal prior studies: no acute ischemia The study has been interpreted contemporaneously by me. . Discharge Plan Discharge Clinical Impression: Atypical chest pain, Anxiety Patient Disposition: Home, Self-Care Instructions: Chest Pain (ED), Anxiety (ED) Additional Instructions: return to ED for any worsening symptoms or concerns please call your doctor this week if this continues for better management of your anxiety. stay with responsible adult tonight you were given ativan in the ER Prescriptions: No Action azithromycin 250 mg tablet See Rx Instructions .ROUTE .COMPLEX Qty: 6 0RF Rx Instructions: For 250 mg dose pack: take 500 mg today (day 1), then 250 mg for 4 days (days 2-5) ibuprofen 800 mg tablet 800 mg PO Q8H ferrous sulfate 325 mg (65 mg iron) tablet,delayed release (DR/EC) 325 mg PO DAILY fluoxetine 10 mg tablet 10 mg PO DAILY
[2022-09-03] MEDS: LORazepam 0.5 MG TABLET PO (01:01)
[2022-09-03 01:02] LABS: MANUAL DIFF FLAG NO
[2022-09-03 01:03] LABS: Basophils Absolute Auto 0.1 X10*3/uL (0.0-0.2); Basophils Percent Auto 0.7 % (0-2); Eosinophils Absolute Auto 0.2 X10*3/uL (0.0-0.4); Eosinophils Percent Auto 2.4 % (0-4); Hematocrit 38.8 % (37.0-47.0); Hemoglobin 13.3 g/dl (12.0-16.0); Imm Gran Abs Auto 0.03 X10*3/uL (0.00-0.03); Imm Gran Pct Auto 0.4 % (0.0-0.4); Lymphocytes Absolute Auto 1.1 X10*3/uL (1.2-4.9); Lymphocytes Percent Auto 14.5 % (20-40); Mean Corpuscular HGB Conc 34.3 g/dl (31.0-35.0); Mean Corpuscular Volume 90.4 fL (80.0-98.0); Mean Platelet Volume 8.7 fL (9.4-12.3); Monocytes Absolute Auto 0.4 X10*3/uL (0.1-1.2); Monocytes Percent Auto 5.8 % (2-11); Neutrophils Absolute Auto 5.8 x10*3/uL (2.0-8.3); Neutrophils Percent Auto 76.2 % (45-73); Platelet Count 287 X10*3/uL (160-400); Red Blood Count 4.29 X10*6/uL (4.20-5.50); Red Cell Distribution Width 12.7 % (11.0-16.0); White Blood Count 7.6 X10*3/uL (4.8-10.8)
[2022-09-03 01:06] VITALS: BP 137/86; PULSE 77; RESP 12; TEMP 36.6; O2SAT 99
[2022-09-03 01:06] LABS: Anion Gap 13 (12-20); Blood Urea Nitrogen 14 mg/dL (9-16); Carbon Dioxide 24 mmol/L (22-29); Chloride 108 mmol/L (96-108); Creatinine Clr Calc Pharmacy 93.1; Estimated Glomerular Filt Rate > 60; Glucose Random 105 mg/dL (60-115); Potassium 3.8 mmol/L (3.3-5.1); Sodium 141 mmol/L (135-145)
[2022-09-03 01:18] LABS: Troponin-I High Sensitivity < 3.5 ng/L (<3.5-17.0)
--- NOTE | 2022-09-03 01:34 | PC.NURSE ---
Discharge instructions reviewed with pt. Pt verbalizes understanding.
== END 2022-09-03 01:35 | disposition home or self-care (01) ==
PROVIDERS: Emergency Provider Emergency Medicine; PCP Internal Medicine
DX: R07.89 Other chest pain (principal); F41.9 Anxiety disorder, unspecified; I10 Essential (primary) hypertension; Z79.899 Other long term (current) drug therapy
CPT/HCPCS: 36415; 71045; 80048; 84484; 85025; 93005; 99283; 99285

== ENCOUNTER 2022-09-12 17:55 | Emergency (ER) | payer MEDICAID, SELFPAY ==
--- NOTE | ~2022-09-12 | XR_ITS ---
EXAMINATION: CHEST 2 VIEWS CLINICAL INFORMATION: shortness of breath, chest pain . COMPARISON: 09/02/2022. TECHNIQUE: PA and lateral views of the chest obtained. FINDINGS: The lungs are well expanded. No focal infiltrate, effusion, edema, or pneumothorax. Cardiac and mediastinal silhouettes are within normal limits for technique. No acute bony abnormality seen XR/XR chest 2V IMPRESSION: No evidence of acute disease
[2022-09-12 19:42] VITALS: BP 152/92; PULSE 77; RESP 18; TEMP 36.1; O2SAT 100; BMI 26.4
--- NOTE | 2022-09-12 19:42 | ED_ITS ---
HPI - Chest Pain General Chief Complaint: General Medical <Rylee Kapoor CNP - Last Filed: 09/12/22 19:44> Stated Complaint: chest pressure <Rylee Kapoor CNP - Last Filed: 09/12/22 19:44> Time Seen by Provider: 09/13/22 02:56 <Rylee Kapoor CNP - Last Filed: 09/12/22 19:44> Source: patient <Sandy Lanier MD - Last Filed: 09/13/22 04:28> Mode of arrival: ambulatory <Sandy Lanier MD - Last Filed: 09/13/22 04:28> History of Present Illness HPI narrative: 51-year-old female presents with complaints of chest pain that felt like pressure, substernal, nonradiating and was not associated with any headache/dizziness/shortness of breath/nausea and occurred while patient was watching TV and lasted approximately 10 minutes but has significantly improved after she took her ?anxiety medication?. Otherwise, patient denies any new sore throat, cough. <Sandy Lanier MD - Last Filed: 09/13/22 04:28> Related Data Home Medications: Home Medications Medication Instructions Recorded Confirmed ferrous sulfate 325 mg (65 mg 325 mg PO DAILY 03/17/21 03/17/21 iron) tablet,delayed release fluoxetine 10 mg tablet 10 mg PO DAILY 03/17/21 03/17/21 ibuprofen 800 mg tablet 800 mg PO Q8H 03/17/21 03/17/21 Previous Rx's Medication Instructions Recorded azithromycin 250 mg tablet See Rx Instructions PO .COMPLEX #6 03/16/22 tabs <Rylee Kapoor CNP - Last Filed: 09/12/22 19:44> Allergies/Adverse Reactions: Allergies Allergy/AdvReac Type Severity Reaction Status Date / Time No Known Allergies Allergy Verified 08/22/22 20:46 <Rylee Kapoor CNP - Last Filed: 09/12/22 19:44> Review of Systems Review of Systems: Pertinent positives and negatives as stated in HPI 10 point review of systems is otherwise negative. <Sandy Lanier MD - Last Filed: 09/13/22 04:28> PMFSH Past Medical History Source: nursing notes reviewed <Sandy Lanier MD - Last Filed: 09/13/22 04:28> Medical History: Medical History Anemia Anxiety Depression HTN (hypertension) <Rylee Martinez BARBARA Kapoor - Last Filed: 09/12/22 19:44> Surgical History: Surgical History History of cholecystectomy <Rylee Michelleervin Kapoor CNP - Last Filed: 09/12/22 19:44> Social History Social History: Social History Alcohol intake: never Patient Tobacco Use Status: Never used Tobacco Advance Directives: No Advance Directives Information Provided: No Gender identity: Female <Rylee ElliottBARBARA rao - Last Filed: 09/12/22 19:44> Physical Exam 2 Vital Signs: Vital Signs: Last Vital Signs Temp 98.1 F 09/13/22 03:11 Pulse 60 09/13/22 03:11 Resp 14 09/13/22 03:11 BP 129/85 09/13/22 03:11 Pulse Ox 100 09/13/22 03:11 O2 Del Method 09/13/22 03:11 BMI result Body Mass Index 26.4 <Rylee KapoorBARBARA - Last Filed: 09/12/22 19:44> Vital Signs: Last Vital Signs Temp 98.1 F 09/13/22 03:11 Pulse 60 09/13/22 03:11 Resp 14 09/13/22 03:11 BP 129/85 09/13/22 03:11 Pulse Ox 100 09/13/22 03:11 O2 Del Method 09/13/22 03:11 BMI result Body Mass Index 26.4 VITAL SIGNS: Reviewed. GENERAL: Well developed, well nourished, in no acute distress. HEAD: Normocephalic/atraumatic EYES: PERRLA, EOMI EARS: Ext canals without abnormality, TMs non-bulging and non-erythematous NOSE: Nares patent bilateral OROPHARYNX: no oral lesions noted, posterior pharynx clear and non-erythematous without noted tonsillar enlargement/erythema/exudates NECK: Supple, no adenopathy LUNGS: Normal breath sounds. No adventitious sounds or accessory muscle use. SpO2<100> CARDIOVASCULAR: Regular rate and rhythm without noted murmurs ABDOMEN: Soft, non-tender, non-distended with bowel sounds. MUSCULOSKELETAL: No tenderness, deformities, or effusions noted on gross inspection. EXTREMITIES: No cyanosis, clubbing or edema. SKIN: Inspection of the skin reveals no rashes NEUROLOGIC: Alert and oriented x 4. Strength and sensation to light touch were grossly intact x 4. <Sandy Lanier MD - Last Filed: 09/13/22 04:28> Course Course Course Narrative: RME: Patient is a 51-year-old female with past medical history of anxiety, hypertension, anemia. She presents to emergency department complaining of chest pressure, mid chest, non radiating, onset suddenly at 1700. Reports associated cough, onset also at 1700. Previously was feeling well today. Denies dizziness, lightheadedness, nausea, vomiting, abdominal pain, shortness of breath, difficulty breathing, fevers, chills. Denies any known sick contacts. States she was seen here in the past for similar concerns of chest pain and everything was normal. Plan: Labs, EKG, chest x-ray, viral testing. <Rylee Kapoor CNP - Last Filed: 09/12/22 19:44> RME: Patient is a 51-year-old female with past medical history of anxiety, hypertension, anemia. She presents to emergency department complaining of chest pressure, mid chest, non radiating, onset suddenly at 1700. Reports associated cough, onset also at 1700. Previously was feeling well today. Denies dizziness, lightheadedness, nausea, vomiting, abdominal pain, shortness of breath, difficulty breathing, fevers, chills. Denies any known sick contacts. States she was seen here in the past for similar concerns of chest pain and everything was normal. Plan: Labs, EKG, chest x-ray, viral testing. After evaluating the patient and reviewing the lab work investigations as well as my interpretation the radiologist read on the chest x-ray there are no acute findings to suggest pneumonia, cardiac ischemia, infectious etiology or electrolyte abnormalities. In addition, the viral testing is negative and patient has had resolution of her symptoms. She is otherwise discharged home with instructions to follow-up with primary care provider. HEART Score:2 <Sandy Lanier MD - Last Filed: 09/13/22 04:28> Medical Decision Making Lab Data Result Diagrams: : 09/12/22 20:34 09/12/22 20:34 <Rylee Kapoor CNP - Last Filed: 09/12/22 19:44> Labs: Lab Results 09/12/22 09/12/22 09/12/22 Range/Units 20:34 20:34 20:34 WBC 6.7 (4.8-10.8) X10*3/uL RBC 4.39 (4.20-5.50) X10*6/uL Hgb 13.7 (12.0-16.0) g/dl Hct 40.1 (37.0-47.0) % MCV 91.3 (80.0-98.0) fL MCH 31.2 (27.0-33.0) pg MCHC 34.2 (31.0-35.0) g/dl RDW 12.9 (11.0-16.0) % Plt Count 314 (160-400) X10*3/uL MPV 8.9 L (9.4-12.3) fL Immature Gran % (Auto) 0.3 (0.0-0.4) % Neut % (Auto) 70.2 (45-73) % Lymph % (Auto) 20.9 (20-40) % [place] % (Auto) 5.2 (2-11) % Eos % (Auto) 2.7 (0-4) % Baso % (Auto) 0.7 (0-2) % Lymph # (Auto) 1.4 (1.2-4.9) X10*3/uL [place] # (Auto) 0.4 (0.1-1.2) X10*3/uL Eos # (Auto) 0.2 (0.0-0.4) X10*3/uL Baso # (Auto) 0.1 (0.0-0.2) X10*3/uL Abs Immat Gran (auto) 0.02 (0.00-0.03) X10*3/uL Absolute Neuts (auto) 4.7 (2.0-8.3) x10*3/uL Absolute Nucleated RBC 0.000 (0.0-0.012) X10*3/uL Nucleated RBC % (auto) 0.0 (0.0-0.2) /100WBC Sodium 143 (135-145) mmol/L Potassium 4.5 (3.3-5.1) mmol/L Chloride 105 (96-108) mmol/L Carbon Dioxide 29 (22-29) mmol/L Anion Gap 14 (12-20) BUN 16 (9-16) mg/dL Creatinine 0.66 (0.5-1.4) mg/dL Estim Creat Clear Calc 94.1 Estimated GFR > 60 Random Glucose 109 (60-115) mg/dL Calcium 10.5 H (8.4-10.2) mg/dL Total Bilirubin 0.7 (0.0-1.0) mg/dL AST 15 (5-31) U/L ALT 13 (0-31) U/L Alkaline Phosphatase 54 (39-117) U/L Troponin I High Sens < 3.5 (<3.5-17.0) ng/L B-Natriuretic Peptide (<100) pg/mL Total Protein 7.3 (6.5-8.0) g/dL Albumin 4.9 (3.5-5.0) g/dL COVID-19 (FRANTZ) (Negative) COVID-19 Clin Com Influenza Type A (TANISHA) (Negative) Influenza Type B (TANISHA) (Negative) Influenza A & B Note 09/12/22 09/12/22 09/12/22 Range/Units 20:34 20:34 20:34 WBC (4.8-10.8) X10*3/uL RBC (4.20-5.50) X10*6/uL Hgb (12.0-16.0) g/dl Hct (37.0-47.0) % MCV (80.0-98.0) fL MCH (27.0-33.0) pg MCHC (31.0-35.0) g/dl RDW (11.0-16.0) % Plt Count (160-400) X10*3/uL MPV (9.4-12.3) fL Immature Gran % (Auto) (0.0-0.4) % Neut % (Auto) (45-73) % Lymph % (Auto) (20-40) % [place] % (Auto) (2-11) % Eos % (Auto) (0-4) % Baso % (Auto) (0-2) % Lymph # (Auto) (1.2-4.9) X10*3/uL [place] # (Auto) (0.1-1.2) X10*3/uL Eos # (Auto) (0.0-0.4) X10*3/uL Baso # (Auto) (0.0-0.2) X10*3/uL Abs Immat Gran (auto) (0.00-0.03) X10*3/uL Absolute Neuts (auto) (2.0-8.3) x10*3/uL Absolute Nucleated RBC (0.0-0.012) X10*3/uL Nucleated RBC % (auto) (0.0-0.2) /100WBC Sodium (135-145) mmol/L Potassium (3.3-5.1) mmol/L Chloride (96-108) mmol/L Carbon Dioxide (22-29) mmol/L Anion Gap (12-20) BUN (9-16) mg/dL Creatinine (0.5-1.4) mg/dL Estim Creat Clear Calc Estimated GFR Random Glucose (60-115) mg/dL Calcium (8.4-10.2) mg/dL Total Bilirubin (0.0-1.0) mg/dL AST (5-31) U/L ALT (0-31) U/L Alkaline Phosphatase (39-117) U/L Troponin I High Sens (<3.5-17.0) ng/L B-Natriuretic Peptide 11 (<100) pg/mL Total Protein (6.5-8.0) g/dL Albumin (3.5-5.0) g/dL COVID-19 (FRANTZ) Negative (Negative) COVID-19 Clin Com See Note Influenza Type A (TANISHA) Negative (Negative) Influenza Type B (TANISHA) Negative (Negative) Influenza A & B Note See Note <Rylee Kapoor, QUALITY REP - Last Filed: 09/12/22 19:44> Lab Results 09/12/22 09/12/22 09/12/22 Range/Units 20:34 20:34 20:34 WBC 6.7 (4.8-10.8) X10*3/uL RBC 4.39 (4.20-5.50) X10*6/uL Hgb 13.7 (12.0-16.0) g/dl Hct 40.1 (37.0-47.0) % MCV 91.3 (80.0-98.0) fL MCH 31.2 (27.0-33.0) pg MCHC 34.2 (31.0-35.0) g/dl RDW 12.9 (11.0-16.0) % Plt Count 314 (160-400) X10*3/uL MPV 8.9 L (9.4-12.3) fL Immature Gran % (Auto) 0.3 (0.0-0.4) % Neut % (Auto) 70.2 (45-73) % Lymph % (Auto) 20.9 (20-40) % [place] % (Auto) 5.2 (2-11) % Eos % (Auto) 2.7 (0-4) % Baso % (Auto) 0.7 (0-2) % Lymph # (Auto) 1.4 (1.2-4.9) X10*3/uL [place] # (Auto) 0.4 (0.1-1.2) X10*3/uL Eos # (Auto) 0.2 (0.0-0.4) X10*3/uL Baso # (Auto) 0.1 (0.0-0.2) X10*3/uL Abs Immat Gran (auto) 0.02 (0.00-0.03) X10*3/uL Absolute Neuts (auto) 4.7 (2.0-8.3) x10*3/uL Absolute Nucleated RBC 0.000 (0.0-0.012) X10*3/uL Nucleated RBC % (auto) 0.0 (0.0-0.2) /100WBC Sodium 143 (135-145) mmol/L Potassium 4.5 (3.3-5.1) mmol/L Chloride 105 (96-108) mmol/L Carbon Dioxide 29 (22-29) mmol/L Anion Gap 14 (12-20) BUN 16 (9-16) mg/dL Creatinine 0.66 (0.5-1.4) mg/dL Estim Creat Clear Calc 94.1 Estimated GFR > 60 Random Glucose 109 (60-115) mg/dL Calcium 10.5 H (8.4-10.2) mg/dL Total Bilirubin 0.7 (0.0-1.0) mg/dL AST 15 (5-31) U/L ALT 13 (0-31) U/L Alkaline Phosphatase 54 (39-117) U/L Troponin I High Sens < 3.5 (<3.5-17.0) ng/L B-Natriuretic Peptide (<100) pg/mL Total Protein 7.3 (6.5-8.0) g/dL Albumin 4.9 (3.5-5.0) g/dL COVID-19 (FRANTZ) (Negative) COVID-19 Clin Com Influenza Type A (TANISHA) (Negative) Influenza Type B (TANISHA) (Negative) Influenza A & B Note 09/12/22 09/12/22 09/12/22 Range/Units 20:34 20:34 20:34 WBC (4.8-10.8) X10*3/uL RBC (4.20-5.50) X10*6/uL Hgb (12.0-16.0) g/dl Hct (37.0-47.0) % MCV (80.0-98.0) fL MCH (27.0-33.0) pg MCHC (31.0-35.0) g/dl RDW (11.0-16.0) % Plt Count (160-400) X10*3/uL MPV (9.4-12.3) fL Immature Gran % (Auto) (0.0-0.4) % Neut % (Auto) (45-73) % Lymph % (Auto) (20-40) % [place] % (Auto) (2-11) % Eos % (Auto) (0-4) % Baso % (Auto) (0-2) % Lymph # (Auto) (1.2-4.9) X10*3/uL [place] # (Auto) (0.1-1.2) X10*3/uL Eos # (Auto) (0.0-0.4) X10*3/uL Baso # (Auto) (0.0-0.2) X10*3/uL Abs Immat Gran (auto) (0.00-0.03) X10*3/uL Absolute Neuts (auto) (2.0-8.3) x10*3/uL Absolute Nucleated RBC (0.0-0.012) X10*3/uL Nucleated RBC % (auto) (0.0-0.2) /100WBC Sodium (135-145) mmol/L Potassium (3.3-5.1) mmol/L Chloride (96-108) mmol/L Carbon Dioxide (22-29) mmol/L Anion Gap (12-20) BUN (9-16) mg/dL Creatinine (0.5-1.4) mg/dL Estim Creat Clear Calc Estimated GFR Random Glucose (60-115) mg/dL Calcium (8.4-10.2) mg/dL Total Bilirubin (0.0-1.0) mg/dL AST (5-31) U/L ALT (0-31) U/L Alkaline Phosphatase (39-117) U/L Troponin I High Sens (<3.5-17.0) ng/L B-Natriuretic Peptide 11 (<100) pg/mL Total Protein (6.5-8.0) g/dL Albumin (3.5-5.0) g/dL COVID-19 (FRANTZ) Negative (Negative) COVID-19 Clin Com See Note Influenza Type A (TANISHA) Negative (Negative) Influenza Type B (TANISHA) Negative (Negative) Influenza A & B Note See Note <Sandy Lanier MD - Last Filed: 09/13/22 04:28> Independent Interpretation I performed an independent interpretation of an: EKG <Sandy Lanier MD - Last Filed: 09/13/22 04:28> Interpretation: Normal sinus rhythm, HR-66, no STEMI, NE/QRS/QTC is within normal limits. <Sandy Lanier MD - Last Filed: 09/13/22 04:28> Discharge Plan Discharge Clinical Impression: Atypical chest pain, Anxiety <Rylee Kapoor CNP - Last Filed: 09/12/22 19:44> Patient Disposition: Home, Self-Care <Rylee Kapoor CNP - Last Filed: 09/12/22 19:44> Instructions: Anxiety (ED), Chest Pain (ED) <Rylee Kapoor CNP - Last Filed: 09/12/22 19:44> Additional Instructions: 1. Resume all home medications as prescribed. 2. Please follow-up with your primary care provider in the next 1-2 days for re-evaluation. Return to the ER for worsening symptoms. <Rylee Kapoor CNP - Last Filed: 09/12/22 19:44> Prescriptions: No Action azithromycin 250 mg tablet See Rx Instructions .ROUTE .COMPLEX Qty: 6 0RF Rx Instructions: For 250 mg dose pack: take 500 mg today (day 1), then 250 mg for 4 days (days 2-5) ibuprofen 800 mg tablet 800 mg PO Q8H ferrous sulfate 325 mg (65 mg iron) tablet,delayed release (DR/EC) 325 mg PO DAILY fluoxetine 10 mg tablet 10 mg PO DAILY <Rylee Kapoor CNP - Last Filed: 09/12/22 19:44> Referrals: Hawa Sinclair MD [Primary Care Provider] - <Rylee Kapoor CNP - Last Filed: 09/12/22 19:44>
--- NOTE | 2022-09-12 19:45 | ECG_ITS ---
Test Reason : CHEST PRESSURE Blood Pressure : / mmHG Vent. Rate : 066 BPM Atrial Rate : 066 BPM P-R Int : 166 ms QRS Dur : 090 ms QT Int : 376 ms P-R-T Axes : 036 048 056 degrees QTc Int : 394 ms Normal sinus rhythm Normal ECG When compared with ECG of 02-SEP-2022 23:25, No significant change was found Referred By: Rylee Kapoor Electronically Signed By:Candelario Villalba
[2022-09-12 20:41] LABS: Basophils Absolute Auto 0.1 X10*3/uL (0.0-0.2); Basophils Percent Auto 0.7 % (0-2); Eosinophils Absolute Auto 0.2 X10*3/uL (0.0-0.4); Eosinophils Percent Auto 2.7 % (0-4); Hematocrit 40.1 % (37.0-47.0); Hemoglobin 13.7 g/dl (12.0-16.0); Imm Gran Abs Auto 0.02 X10*3/uL (0.00-0.03); Imm Gran Pct Auto 0.3 % (0.0-0.4); Lymphocytes Absolute Auto 1.4 X10*3/uL (1.2-4.9); Lymphocytes Percent Auto 20.9 % (20-40); MANUAL DIFF FLAG NO; Mean Corpuscular HGB Conc 34.2 g/dl (31.0-35.0); Mean Corpuscular Hemoglobin 31.2 pg (27.0-33.0); Mean Corpuscular Volume 91.3 fL (80.0-98.0); Mean Platelet Volume 8.9 fL (9.4-12.3); Monocytes Absolute Auto 0.4 X10*3/uL (0.1-1.2); Monocytes Percent Auto 5.2 % (2-11); Neutrophils Absolute Auto 4.7 x10*3/uL (2.0-8.3); Neutrophils Percent Auto 70.2 % (45-73); Platelet Count 314 X10*3/uL (160-400); Red Blood Count 4.39 X10*6/uL (4.20-5.50); Red Cell Distribution Width 12.9 % (11.0-16.0); White Blood Count 6.7 X10*3/uL (4.8-10.8)
[2022-09-12 20:57] LABS: COVID-19 Test Negative (Negative); IDNOW Serial# 16C4AD1C; IDNOW Serial# BCCEAD1C; Influenza A Negative (Negative); Influenza B2 Negative (Negative)
[2022-09-12 21:13] LABS: Alanine Aminotransferase 13 U/L (0-31); Albumin Level 4.9 g/dL (3.5-5.0); Alkaline Phosphatase 54 U/L (39-117); Anion Gap 14 (12-20); Aspartate Amino Transferase 15 U/L (5-31); Blood Urea Nitrogen 16 mg/dL (9-16); Calcium 10.5 mg/dL (8.4-10.2); Carbon Dioxide 29 mmol/L (22-29); Chloride 105 mmol/L (96-108); Creatinine Clr Calc Pharmacy 94.1; Estimated Glomerular Filt Rate > 60; Glucose Random 109 mg/dL (60-115); Potassium 4.5 mmol/L (3.3-5.1); Sodium 143 mmol/L (135-145); Total Protein 7.3 g/dL (6.5-8.0)
[2022-09-12 21:14] LABS: Troponin-I High Sensitivity < 3.5 ng/L (<3.5-17.0)
[2022-09-12 21:27] LABS: Bilirubin Total 0.7 mg/dL (0.0-1.0)
[2022-09-12 22:07] LABS: B Type Natriuretic Peptide 11 pg/mL (<100)
[2022-09-13 03:11] VITALS: BP 129/85; PULSE 60; RESP 14; TEMP 36.7; O2SAT 100
[2022-09-13 04:35] VITALS: BP 129/84; PULSE 60; RESP 15; TEMP 36.7; O2SAT 58
--- NOTE | 2022-09-13 04:45 | PC.NURSE ---
pt a&o,no sob or chest pain. no n/v . Reviewed discharge instructions with pt . pt verbalized understanding.
== END 2022-09-13 04:46 | disposition home or self-care (01) ==
PROVIDERS: Nurse Practitioner Family; Emergency Provider Student in an Organized Health Care Education/Training Program; PCP Internal Medicine
DX: R07.89 Other chest pain (principal); R06.02 Shortness of breath; F41.1 Generalized anxiety disorder; F43.0 Acute stress reaction; Z20.822 Contact with and (suspected) exposure to COVID-19; Z79.899 Other long term (current) drug therapy
CPT/HCPCS: 71046; 80053; 83880; 84484; 85025; 87502; 87635; 93005; 99283; 99284

== ENCOUNTER 2022-10-13 10:55 | Outpatient (REF) | payer MEDICAID, SELFPAY ==
[2022-10-13 13:57] LABS: MANUAL DIFF FLAG NO
[2022-10-13 14:01] LABS: Basophils Percent Auto 0.6 % (0-2); Eosinophils Absolute Auto 0.2 X10*3/uL (0.0-0.4); Eosinophils Percent Auto 2.4 % (0-4); Hematocrit 43.4 % (37.0-47.0); Hemoglobin 14.5 g/dl (12.0-16.0); Imm Gran Abs Auto 0.02 X10*3/uL (0.00-0.03); Imm Gran Pct Auto 0.3 % (0.0-0.4); Lymphocytes Absolute Auto 1.1 X10*3/uL (1.2-4.9); Lymphocytes Percent Auto 17.8 % (20-40); Mean Corpuscular HGB Conc 33.4 g/dl (31.0-35.0); Mean Corpuscular Hemoglobin 30.9 pg (27.0-33.0); Mean Corpuscular Volume 92.5 fL (80.0-98.0); Mean Platelet Volume 9.3 fL (9.4-12.3); Monocytes Absolute Auto 0.3 X10*3/uL (0.1-1.2); Monocytes Percent Auto 5.1 % (2-11); Neutrophils Absolute Auto 4.6 x10*3/uL (2.0-8.3); Neutrophils Percent Auto 73.8 % (45-73); Platelet Count 365 X10*3/uL (160-400); Red Blood Count 4.69 X10*6/uL (4.20-5.50); Red Cell Distribution Width 12.3 % (11.0-16.0); White Blood Count 6.3 X10*3/uL (4.8-10.8)
[2022-10-13 14:27] LABS: Alanine Aminotransferase 11 U/L (0-31); Albumin Level 4.8 g/dL (3.5-5.0); Alkaline Phosphatase 61 U/L (39-117); Anion Gap 15 (12-20); Aspartate Amino Transferase 15 U/L (5-31); Blood Urea Nitrogen 14 mg/dL (9-16); Calcium 10.4 mg/dL (8.4-10.2); Carbon Dioxide 26 mmol/L (22-29); Chloride 104 mmol/L (96-108); Cholesterol 215 mg/dL; Estimated Glomerular Filt Rate > 60; Glucose Fasting 97 mg/dL (60-99); HDL Cholesterol 53 mg/dL; LDL Cholesterol Calculated 146 mg/dl; Potassium 4.5 mmol/L (3.3-5.1); Sodium 140 mmol/L (135-145); Total Protein 7.4 g/dL (6.5-8.0); Triglycerides 81 mg/dL
[2022-10-13 14:38] LABS: Ferritin 30 ng/mL (10-250); Thyroid Stimulating Hormone 0.36 uIU/mL (0.32-4.0)
== END 2022-10-13 10:56 | disposition home or self-care (01) ==
LOC: HO.10HDL 10:55
PROVIDERS: Visit Provider Internal Medicine
DX: D50.8 Other iron deficiency anemias (principal); E78.00 Pure hypercholesterolemia, unspecified; F32.5 Major depressive disorder, single episode, in full remission; R07.89 Other chest pain
CPT/HCPCS: 36415; 80053; 80061; 82728; 84443; 85025

== ENCOUNTER 2022-12-17 21:59 | Emergency (ER) | payer MEDICAID, SELFPAY ==
--- NOTE | ~2022-12-17 | XR_ITS ---
EXAMINATION: XR LUMBOSACRAL SPINE CLINICAL INFORMATION: Acute low back pain COMPARISON: Lumbar spine 02/20/2020 TECHNIQUE: Three views of the lumbosacral spine. FINDINGS: Mild spondylitic endplate changes are seen. Vertebral body heights are well-maintained. There is minimal disc space narrowing at L3-L4. There is mild grade 1 retrolisthesis of L4 upon L5. No fractures or bony destructive lesions are seen. Surgical clips are present in the gallbladder fossa. XR/XR lumbar spine 2-3V IMPRESSION: Mild degenerative changes in the spine with grade 1 retrolisthesis of L4 upon L5.
[2022-12-17 22:05] VITALS: BP 125/82; PULSE 75; RESP 20; TEMP 36.6; O2SAT 100; BMI 26.5
--- NOTE | 2022-12-17 23:59 | ED_ITS ---
HPI - Back Pain/Injury General Chief Complaint: Back Pain/Injury Stated Complaint: lower back pain Time Seen by Provider: 12/17/22 23:45 Source: patient Mode of arrival: ambulatory Limitations: no limitations History of Present Illness MD elicited complaint: back pain Pertinent past history: recent trauma Onset (ago): day(s) (3) Timing: constant Severity: severe Similar Symptoms Previously: Yes Quality: dull and aching Location: lumbar spine Radiation: right upper leg Exacerbating factors: movement, walking and lifting Relieving factors: none Context: fall Associated symptoms: numbness (Right leg) Treatments prior to arrival: acetaminophen Related Data Home Medications Medication Instructions Recorded Confirmed ferrous sulfate 325 mg (65 mg 325 mg PO DAILY 03/17/21 03/17/21 iron) tablet,delayed release fluoxetine 10 mg tablet 10 mg PO DAILY 03/17/21 03/17/21 ibuprofen 800 mg tablet 800 mg PO Q8H 03/17/21 03/17/21 Previous Rx's Medication Instructions Recorded azithromycin 250 mg tablet See Rx Instructions PO .COMPLEX #6 03/16/22 tabs meloxicam 15 mg tablet 15 mg PO DAILY #14 tabs 12/18/22 Allergies Allergy/AdvReac Type Severity Reaction Status Date / Time No Known Allergies Allergy Verified 08/22/22 20:46 [facility] Past Medical History Medical History Anemia Anxiety Depression HTN (hypertension) Surgical History History of cholecystectomy Social History Social History Alcohol intake: never Patient Tobacco Use Status: Never used Tobacco Advance Directives: No Advance Directives Information Provided: Yes Gender identity: Female Physical Exam Vital Signs: Vital Signs: Last Vital Signs Temp 97.9 F 12/17/22 22:05 Pulse 80 12/18/22 00:13 Resp 18 12/18/22 00:13 BP 134/91 H 12/18/22 00:13 Pulse Ox 100 12/18/22 00:13 O2 Del Method Room Air 12/18/22 00:13 BMI result Body Mass Index 26.5 GEN: Well developed, no acute distress, alert, oriented HEENT: Normocephalic, atraumatic, normal external ears, nose appears normal Eyes: Normal to appearance Neck: Supple, no lymphadenopathy Respiratory: Talks in complete sentences, no respiratory distress Extremities: No clubbing cyanosis or edema Neurologic: No focal neurologic deficits, cranial nerves 2-12 intact, gait normal Skin: No rash Back: Right lumbar paraspinous, SI joint tenderness, no midline tenderness or step-off Course Course Course Narrative: 52-year-old female presents with acute low back pain. Symptoms started 3 days ago. This occurred after a fall. Her pain does radiate to the right leg and she is noting some intermittent numbness of the right upper leg. She denies any loss of bowel or bladder control or saddle paresthesias. Doubt acute cauda e quina syndrome. She has no history of intravenous drug abuse, no midline tenderness, no complaints of fevers to suggest epidural abscess. Most likely this is a sprain or strain of the back with spasms. Patient is taking Tylenol 1 tablet once. Did not adequately control her pain. We discussed the adequate dosages of medication to improve her pain. Will obtain an x-ray to rule out compression fracture although I suspect this will be normal. Reevaluation(s) Reevaluation #1: discussed results and discharge plan. Discussed safe medication usage. Time: 00:40 Medications Administered Discontinued Medications Generic Name Dose Route Start Last Admin Trade Name Freq PRN Reason Stop Dose Admin Acetaminophen 975 mg 12/17/22 23:51 12/18/22 00:09 Acetaminophen 325 Mg Tablet PO 12/17/22 23:52 975 mg ONCE ONE Administration Medical Decision Making Medical Decision Making [facility] Narrative: 52-year-old female presents with lumbar back pain x3 days after a fall associated with mild radiculopathy in mild upper extremity paresthesias. Doubt acute cauda equina syndrome. She has no history of intravenous drug abuse, no midline tenderness, no complaints of fevers to suggest epidural abscess. Most likely this is a sprain or strain of the back with spasms. Patient is taking Tylenol 1 tablet once. Did not adequately control her pain. We discussed the adequate dosages of medication to improve her pain. Will obtain an x-ray to rule out compression fracture although I suspect this will be normal. Differential Diagnosis Differential Diagnoses: The differential diagnosis associated with the presentation includes (Sprain, strain, fracture, contusion, radiculopathy) low back pain, SI pain Independent Interpretation I performed an independent interpretation of an: Plain X-Ray (L spine: degenerative changes, some inflammatory changes to right SI joint) Prescription Management I considered prescription management with: Pain Medication Discharge Plan Discharge Clinical Impression: Strain of lumbar region, Sacro-iliac pain Patient Disposition: Home, Self-Care Instructions: Acute Low Back Pain (ED), Sacroiliitis (ED) Additional Instructions: For Pain: Meloxicam 15 mg daily for 7-10 days Tylenol 1000 mg every 6 hours as needed for additional pain relief. Heat/Ice whichever works best Prescriptions: New meloxicam 15 mg tablet 15 mg PO DAILY Qty: 14 0RF No Action azithromycin 250 mg tablet See Rx Instructions .ROUTE .COMPLEX Qty: 6 0RF Rx Instructions: For 250 mg dose pack: take 500 mg today (day 1), then 250 mg for 4 days (days 2-5) ibuprofen 800 mg tablet 800 mg PO Q8H ferrous sulfate 325 mg (65 mg iron) tablet,delayed release (DR/EC) 325 mg PO DAILY fluoxetine 10 mg tablet 10 mg PO DAILY Referrals: Hawa Sinclair MD [Primary Care Provider] - 1 week Stand Alone Forms: Work/School Release
[2022-12-18] MEDS: Acetaminophen 325 MG TABLET 975 MG PO (00:09)
[2022-12-18 00:13] VITALS: BP 134/91; PULSE 80; RESP 18; O2SAT 100
== END 2022-12-18 01:14 | disposition home or self-care (01) ==
PROVIDERS: Emergency Provider Emergency Medicine; PCP Internal Medicine
DX: S39.012A Strain of muscle, fascia and tendon of lower back, initial encounter (principal); M53.3 Sacrococcygeal disorders, not elsewhere classified; X58.XXXA Exposure to other specified factors, initial encounter; Y93.9 Activity, unspecified; Y92.9 Unspecified place or not applicable; Y99.9 Unspecified external cause status; Z79.899 Other long term (current) drug therapy
CPT/HCPCS: 72100; 99284

== ENCOUNTER 2023-01-04 08:01 | Outpatient (REF) | payer MEDICAID, SELFPAY ==
--- NOTE | ~2023-01-04 | MM_ITS ---
EXAMINATION: MM SCREENING DIGITAL BREAST TOMOSYNTHESIS, BILATERAL CLINICAL INFORMATION: Screening. Asymptomatic. The lifetime risk of breast cancer based on the Tyrer-Cuzick Model is 7%. COMPARISON: Mammography: 12/13/2021, 11/11/2020, 02/26/2019 TECHNIQUE: Digital breast tomosynthesis is performed in both the craniocaudal and mediolateral oblique views along with computer-aided detection (CAD). Synthesized 2D images are generated from the tomosynthesis. FINDINGS: There are scattered areas of fibroglandular density (ACR BI-RADS breast composition Category b). There are no significant masses, abnormal calcifications, or other abnormalities. Parenchymal pattern is similar to prior studies. There is no developing density or architectural abnormality. Again, there are scattered bilateral benign round and rim calcifications anterior central breasts. The axilla and skin contours are unremarkable. No significant changes. MM/MM tomosynthesis screening BI IMPRESSION: No mammographic evidence of malignancy. ASSESSMENT: BI-RADS 2: Benign RECOMMENDATION: Routine annual mammography screening. This patient's information was entered into a reminder system with a target due date for their next mammogram.
== END 2023-01-04 08:02 | disposition home or self-care (01) ==
LOC: HO.MAMMO 08:01
PROVIDERS: PCP Internal Medicine; Visit Provider Internal Medicine
DX: Z12.31 Encounter for screening mammogram for malignant neoplasm of breast (principal)
CPT/HCPCS: 77063; 77067

== ENCOUNTER 2023-08-10 10:06 | Outpatient (AMB) | payer MEDICAID, SELFPAY ==
--- NOTE | 2023-08-10 10:27 | A.OFFVIS_ITS ---
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 Administrator Required: No Information Interpreted: non-clinical & clinical Director Of Radiology: Director Of Radiology Present (Judith) Allergies No Known Allergies Allergy (Verified 08/10/23 10:30) Medication List - Last Reconciled 08/10/23 by Leta Cueva CNM acetaminophen 1,000 mg (2 x 500 mg) PO Q6H PRN azithromycin For 250 mg dose pack: take 500 mg today (day 1), then 250 mg for 4 days (days 2-5) ferrous sulfate 325 mg PO DAILY fluoxetine 10 mg PO DAILY ibuprofen 800 mg PO Q8H meloxicam 15 mg PO DAILY Is last menstrual period known: No Post menopausal: Yes Patient : No 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 She has a history of ASCUS in the past but her last Pap smear in 2020 was negative. We will repeat the Pap today today she is concerned also about getting testing for STIs because she found out that someone that she was with during December of 2021 had a medication that was for HIV and she is concerned that maybe she was lied to. So she would like to get tested for everything today. She does not have any abnormal discharge she has not had a period for over a year now she is not having any edin menopausal symptoms except for hot flashes she is on medication for depression and anxiety and sleep and says they help and she also is getting counseling and that helps to. She had her baby's with the midwives in this group and re counted details for of 32 years ago and 19 years ago. [facility] Medical History Anxiety HTN (hypertension) Anemia Depression Surgical History History of cholecystectomy Social History Alcohol intake: never Patient Tobacco Use Status: Never used Tobacco Patient : No Gender identity: Female Female Reproductive History Menstrual Age of Menarche: 13 control method: none Total pregnancies: 3 Full term: 2 Number of Living Children: 2 Ab spontaneous: 1 Date of last pap smear: 03/18/21 (negative) History of abnormal pap smear: Yes (2017 ASCUS) Date of Mammogram: 01/04/23 Physical Exam Vital Signs: BMI result Body Mass Index 33.5 Const General: healthy appearing, comfortable, no acute distress, well developed and alert Nutritional Appearance: average body habitus Orientation/consciousness: patient oriented x3 Limitations: no limitations HEENT Head: Yes normocephalic Neck Neck: Yes normal visual inspection Chest Chest palpation & inspection: normal inspection of the chest Breast/axilla inspection: normal inspection of the breasts and normal inspection of the axillae Breast/axilla palpation: normal palpation of the breasts and normal palpation of the axillae Resp Effort & Inspection: normal respiratory effort GI Inspection: Yes normal to inspection, No Abdominal wall edema and No distended Palpation (GI): Soft to palpation and nontender Other: Normal external exam vagina pink and moist postmenopausal changes noted cervix multiparous mobile nontender uterus mobile nontender but feels bulky though adipose may be interfering with assessment adnexa nontender not enlarged good tone with Kegel will order ultrasound to assess uterine size and for possible fibroids General: Yes bladder normal to palpation External Female Exam: normal external appearance and normal appearance of the urethra Speculum Exam - Vagina: normal appearance of the vagina, normal palpation and normal vaginal discharge Speculum Exam - Cervix: normal appearance of the cervix, normal palpation and nontender Bimanual exam- vagina & uterus: normal bimanual exam, normal palpation, uterine size normal, bladder normal to palpation, consistency normal, normal palpation, uterine mobility normal, uterine shape normal, No Cervical tenderness present, non-tender and no cervical motion tenderness Bimanual Exam- Adnexa, other: normal adnexae, no masses, normal and No adnexal tenderness Neuro General: patient oriented x3 Results Reviewed Results Reviewed: Name: Elisabeth Willis Age/Sex: 50/F Attending: Leta Cueva CNM : 1970 Submitted by: Leta Cueva CNM Copies to: MR #: [id number] Status: DEP REF Collected: 03/17/21 Location: .LAB Received: 03/18/21 Interpretation Satisfactory for evaluation. Negative for intraepithelial lesion or malignancy. HPV mRNA E6/E7: NOT DETECTED This assay detects E6/E7 viral messenger RNA (mRNA) from 14 high-risk HPV types (16, 18, 31, 33, 35, 39, 45, 51, 52, 56, 58, 59, 66, 68) HPV testing performed by [facility], [place], [place]. See reference laboratory portion of the EMR for entire report. Clinical Information LMP: 03/06/21 Previous PAP test: 01/03/18, WNL Other history: 12/20/2016 abnormal Material Received ThinPrep Cervical Electronically Signed By: Rajani Bain 03/23/21 1209 The Pap Test is a screening procedure with the inherent possibility of both false negative and false positive results. Results should be interpreted in the context of historic and current clinical findings. Reliability of the Pap Test is enhanced by performing the test on a regular repetitive basis. Patient: Elisabeth Willis Age/Sex: 50/F MR#: [id number] Page 1 of 1 Assessment & Plan Assessment & Plan (1) Well woman exam with routine gynecological exam: Code(s): Z01.419 - Encounter for gynecological examination (general) (routine) without abnormal findings (2) Hx of abnormal cervical Pap smear: Comment: 03/17/21 pap neg w neg hpv Code(s): Z87.42 - Personal history of other diseases of the female genital tract (3) Screen for sexually transmitted diseases: Code(s): Z11.3 - Encounter for screening for infections with a predominantly sexual mode of transmission (4) Bulky or enlarged uterus: Code(s): N85.2 - Hypertrophy of uterus (5) Weight gain: Comment: has gained 39 lbs since november....discussed Code(s): R63.5 - Abnormal weight gain (6) Perimenopause: Code(s): N95.1 - Menopausal and female climacteric states Plan -----Discussed in this visit the following: healthy balanced diet, regular and consistent exercise, getting recommended health screens, doing the best she can for her particular health concerns, kegel exercises, pap smear screening and followup recommendations, mammography screening and SBE, normal changes in cycles in her life stage--- .Discussed in general terms the challenges of obesity and challenges for her health and efforts she is engaging in to manage this including dietary changes water intake attention to sleep inclusion of a regular exercise have it and dealing with the may need stressors of life that can contribute to obesity in general. Encouraged her to continue in all have her best efforts. She had not noticed that she had gained this much weight this year, so I did ask her to trying keep an eye on it it is it is harder to lose then to gain. ----Discussed STIs, exposure, transmission, symptoms, and prevention, Testing was ordered/ performed as per plan and orders. I recommend that pt use condoms and avoid risky exposure, and inform her partner(s) of any positive findings. I rec that she makes sure she obtains all results as per the practice protocol. If she is concerned about a very recent exposure, she should consider retesting at a recommended future time. 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 -she has says she is not sexually active with anyone now the last exposure was December of 2021 which is the 1 she is concerned about. Because her uterus feels somewhat bulky today though it is not low in any way and she does have good tone with Kegel I am ordering an ultrasound to check for what might be going on if anything it could be that adipose is limiting the exam. She says therapy and the medications are both helping her issues with depression. Coding Level of Care Code Est Pt Prev Care 40-64y(72301) Diagnoses Well woman exam with routine gynecological exam Z01.419 Hx of abnormal cervical Pap smear Z87.42 Screen for sexually transmitted diseases Z11.3 Bulky or enlarged uterus N85.2 Weight gain R63.5 Perimenopause N95.1
[2023-08-10 10:29] VITALS: BP 132/84; BMI 33.5
== END 2023-08-10 11:05 | disposition home or self-care (01) ==
LOC: HO.HWS 10:06
PROVIDERS: PCP Internal Medicine; Visit Provider Advanced Practice Midwife
DX: Z01.419 Encounter for gynecological examination (general) (routine) without abnormal findings (principal); Z87.42 Personal history of other diseases of the female genital tract; Z11.3 Encounter for screening for infections with a predominantly sexual mode of transmission; N85.2 Hypertrophy of uterus; R63.5 Abnormal weight gain; N95.1 Menopausal and female climacteric states
CPT/HCPCS: 99396

== ENCOUNTER 2023-08-10 10:06 | Outpatient (REF) | payer MEDICAID, SELFPAY ==
[2023-08-10 15:38] LABS: CT PCR NOT DETECTED (Not Detect.); NG PCR NOT DETECTED (Not Detect.)
[2023-08-11 08:57] LABS: BV Int Neg Control Negative (Negative); BV Int Pos Control Positive (Positive)
[2023-08-17 09:24] LABS: HPV 16 RNA NOT DETECTED (NOT DETECTED); HPV mRNA E6/E7 rflx Detected (Not Detected)
== END 2023-08-10 10:07 | disposition home or self-care (01) ==
LOC: HO.LAB 10:06
PROVIDERS: PCP Internal Medicine; Visit Provider Advanced Practice Midwife
DX: Z01.419 Encounter for gynecological examination (general) (routine) without abnormal findings (principal); N85.2 Hypertrophy of uterus; R63.5 Abnormal weight gain; N95.1 Menopausal and female climacteric states; Z11.3 Encounter for screening for infections with a predominantly sexual mode of transmission; Z87.42 Personal history of other diseases of the female genital tract; Z79.899 Other long term (current) drug therapy
CPT/HCPCS: 0353U; 87480; 87510; 87624; 87625; 87660; 88142

== ENCOUNTER 2023-12-22 02:15 | Emergency (ER) | payer MEDICAID, SELFPAY ==
--- NOTE | 2023-12-22 | ECG_ITS ---
Test Reason : ABD PAIN Blood Pressure : / mmHG Vent. Rate : 090 BPM Atrial Rate : 090 BPM P-R Int : 168 ms QRS Dur : 078 ms QT Int : 346 ms P-R-T Axes : 051 038 050 degrees QTc Int : 423 ms Normal sinus rhythm Normal ECG When compared with ECG of 12-SEP-2022 20:26, No significant change was found Referred By: Generic ED Physician Electronically Signed By:Candelario Villalba
[2023-12-22 02:26] VITALS: BP 141/86; PULSE 97; RESP 17; TEMP 36.6; O2SAT 99; BMI 33.7
[2023-12-22 03:16] LABS: MANUAL DIFF FLAG NO
[2023-12-22 03:19] LABS: Basophils Percent Auto 0.4 % (0-2); Eosinophils Absolute Auto 0.3 X10*3/uL (0.0-0.4); Eosinophils Percent Auto 2.8 % (0-4); Hematocrit 40.4 % (37.0-47.0); Hemoglobin 13.7 g/dl (12.0-16.0); Imm Gran Abs Auto 0.02 X10*3/uL (0.00-0.03); Imm Gran Pct Auto 0.2 % (0.0-0.4); Lymphocytes Absolute Auto 0.5 X10*3/uL (1.2-4.9); Mean Corpuscular HGB Conc 33.9 g/dl (31.0-35.0); Mean Corpuscular Hemoglobin 29.8 pg (27.0-33.0); Mean Platelet Volume 8.5 fL (9.4-12.3); Monocytes Absolute Auto 0.3 X10*3/uL (0.1-1.2); Monocytes Percent Auto 3.4 % (2-11); Neutrophils Absolute Auto 8.4 x10*3/uL (2.0-8.3); Neutrophils Percent Auto 88.2 % (45-73); Platelet Count 282 X10*3/uL (160-400); Red Blood Count 4.59 X10*6/uL (4.20-5.50); Red Cell Distribution Width 12.4 % (11.0-16.0); White Blood Count 9.5 X10*3/uL (4.8-10.8)
[2023-12-22 03:32] LABS: Alanine Aminotransferase 20 U/L (0-31); Albumin Level 4.5 g/dL (3.5-5.0); Alkaline Phosphatase 99 U/L (39-117); Anion Gap 16 (12-20); Aspartate Amino Transferase 19 U/L (5-31); Bilirubin Total 0.8 mg/dL (0.0-1.0); Blood Urea Nitrogen 20 mg/dL (9-16); Calcium 10.1 mg/dL (8.4-10.2); Carbon Dioxide 20 mmol/L (22-29); Chloride 105 mmol/L (96-108); Creatinine Clr Calc Pharmacy 100.6; Estimated Glomerular Filt Rate > 60; Glucose Random 163 mg/dL (60-115); Lipase 11 U/L (8-78); Sodium 137 mmol/L (135-145); Total Protein 7.8 g/dL (6.5-8.0)
[2023-12-22 03:38] LABS: Troponin-I High Sensitivity < 2.7 ng/L (<3.5-17.0)
[2023-12-22 05:05] VITALS: BP 121/78; PULSE 88; RESP 22; TEMP 36.6; O2SAT 98
--- NOTE | 2023-12-22 06:41 | ED_ITS ---
HPI - General Adult General Chief complaint: Abdominal Pain Stated complaint: stomach pain, n/v Time Seen by Provider: 12/22/23 06:27 Source: patient Mode of arrival: ambulatory Limitations: no limitations History of Present Illness HPI narrative: Patient is a 53-year-old female with history of HTN, anxiety and depression presenting to the emergency department with complaint of epigastric/chest pain or several hours prior to arrival. She also reports nausea and vomiting. She states that when she drinks fluids, it increases the burning sensation in her epigastric area. She denies any diarrhea or constipation. Denies fevers. Denies shortness of breath or palpitations. Patient does report that her symptoms are increasing her anxiety. MD complaint: Epigastric pain Onset (ago): hour(s) Location: chest and abdomen Quality: burning Pain Consistency: colicky Relieving factors: none Exacerbating factors: other (Drinking fluids) Associated symptoms: chest pain and nausea/vomiting Treatments prior to arrival: NSAID Related Data Home Medications Medication Instructions Recorded Confirmed ferrous sulfate 325 mg (65 mg 325 mg PO DAILY 03/17/21 08/10/23 iron) tablet,delayed release fluoxetine 10 mg tablet 10 mg PO DAILY 03/17/21 08/10/23 ibuprofen 800 mg tablet 800 mg PO Q8H 03/17/21 08/10/23 Previous Rx's Medication Instructions Recorded azithromycin 250 mg tablet See Rx Instructions PO .COMPLEX #6 03/16/22 tabs acetaminophen 500 mg tablet 1,000 mg (2 x 500 mg) PO Q6H PRN 12/18/22 fever or pain #30 tabs meloxicam 15 mg tablet 15 mg PO DAILY #14 tabs 12/18/22 famotidine 20 mg tablet 20 mg PO BID #14 tabs 12/22/23 Allergies Allergy/AdvReac Type Severity Reaction Status Date / Time No Known Allergies Allergy Verified 08/10/23 10:30 Review of Systems 2 Review of Systems: As per HPI. Yes all other systems are reviewed and are negative Constitutional: Constitutional: Reports as per HPI PMF Past Medical History Medical History Anxiety HTN (hypertension) Anemia Depression Surgical History History of cholecystectomy Social History Social History Alcohol intake: never Patient Tobacco Use Status: Never used Tobacco Smoked in Last 30 Days: No Use of substances other than those prescribed or required for medical reasons: No Advance Directives: No Advance Directives Information Provided: No Patient : No Gender identity: Female Physical Exam ED Vital Signs: Vital Signs - 24 hr 12/22/23 02:26 12/22/23 05:05 12/22/23 07:55 Temperature 97.8 F 97.8 F Pulse Rate 97 88 86 Respiratory Rate 17 22 H 16 Blood Pressure 141/86 H 121/78 126/83 Pulse Oximetry 99 98 99 Oxygen Delivery Method Room Air Room Air Room Air BMI result Body Mass Index 33.7 Vital signs have been reviewed and appear to be correct. Blood pressure normal. Heart rate normal. Respiratory rate normal. Temperature normal. Oxygen saturation normal. Const General: cooperative, healthy appearing and no acute distress Orientation/consciousness: oriented to person, oriented to place, oriented to time and patient oriented x3 Limitations: no limitations [facility] Head: Yes normocephalic and Yes atraumatic Ears: external ears normal General nose exam: Normal external nose present Face and sinus: Yes face symmetric Mouth: oropharynx normal and moist mucous membranes Throat: Yes uvula midline Eyes Pupils: Equal, round and reactive pupils present Neck Neck: Yes normal visual inspection and Yes supple Resp Effort & Inspection: normal respiratory effort and able to speak in complete sentences Auscultation: clear to auscultation bilaterally Cardio Rate: regular rate Rhythm: regular rhythm Heart sounds: S1 normal heart sound present and S2 normal heart sound present GI Inspection: Yes normal to inspection Palpation (GI): Soft to palpation, Tenderness to palpation present (GI) in the epigastrum, no guarding and No Rebound tenderness present Auscultation: normoactive bowel sounds General: Yes no CVA tenderness Back/Spine/Pelvis Back: no CVA tenderness Skin General skin exam: elasticity normal and turgor normal Neuro General: oriented to person, oriented to place, oriented to time, patient oriented x3, moves all extremities, no focal motor deficits and CN's II-XI intact bilaterally Cranial nerves: Yes Equal, round and reactive pupils present Cognition (Neuro): normal cognition Extrem General: Yes full ROM, Yes no pedal edema and Yes no calf tenderness Psych Mental Status: mental status grossly normal Affect: normal affect Thought process: Normal thought process present Medications Administered Discontinued Medications Generic Name Dose Route Start Last Admin Trade Name Karthikeyan PRN Reason Stop Dose Admin Al Hydroxide/Mg Hydroxide 30 ml 12/22/23 06:44 12/22/23 07:54 Magnesium Hydrox/Alum Hydrox 30 Ml Oral.Susp PO 12/22/23 06:45 30 ml ONCE ONE Administration Sodium Chloride 1,000 mls @ 999 mls/hr 12/22/23 06:45 12/22/23 07:53 Ns IV 12/22/23 07:45 999 mls/hr .Q1H1M SUSY Administration Lidocaine HCl 10 ml 12/22/23 06:44 12/22/23 07:54 Lidocaine Hcl Viscous 2 % 15 Ml Solution MUCOUS MEM 12/22/23 06:45 10 ml ONCE ONE Administration Ondansetron HCl 4 mg 12/22/23 06:44 12/22/23 07:53 Ondansetron Hcl 4 Mg/2 Ml Vial IVPUSH 12/22/23 06:45 4 mg ONCE ONE Administration Medical Decision Making Medical Decision Making MDM Narrative: Patient is a 53-year-old female with history of HTN, anxiety and depression presenting to the emergency department with complaint of epigastric/chest pain or several hours prior to arrival. On exam patient is awake, A+Ox3, VS WNL, afebrile, normal neurological exam without focal deficits, physical exam findings as above. Given reported symptoms and physical exam findings, initial differential includes ACS, GERD, gastritis, PUD. Less likely pancreatitis. Do not suspect aortic dissection, esophageal rupture, pneumothorax, tamponade. Labs notable for no leukocytosis, no anemia, normal LFTs and bilirubin, mildly elevated BUN, negative troponin. EKG shows normal sinus rhythm. Repeat troponin negative. Patient reports symptoms improved in the ED with medications given. The patient is stable for discharge home at this time. Will send prescription for famotidine, advised patient to use [id number] Maalox as well. Patient reports she is still feeling anxious but does have anxiety medication at home and feels comfortable with discharge home at this time, will take her medications once she returns home. Instructed patient to follow-up with her primary care provider. Return precautions discussed at bedside. Patient verbalized understanding of and agreement with plan. Differential Diagnosis Differential Diagnoses: The differential diagnosis associated with the presentation includes As per MDM Admission/Observation Consideration of admission/observation: Escalation of care including admission/observation considered Patient would have been admitted to the hospital had their work up had any findings where hospital admission was appropriate and their clinical presentation warranted hospital admission. Lab Data [facility] Lab Attestation statement: I reviewed the patient's lab results. As per [facility] 12/22/23 03:12 12/22/23 03:08 Labs: Lab Results 12/22/23 12/22/23 12/22/23 Range/Units 03:08 03:12 07:44 WBC 9.5 (4.8-10.8) X10*3/uL RBC 4.59 (4.20-5.50) X10*6/uL Hgb 13.7 (12.0-16.0) g/dl Hct 40.4 (37.0-47.0) % MCV 88.0 (80.0-98.0) fL MCH 29.8 (27.0-33.0) pg MCHC 33.9 (31.0-35.0) g/dl RDW 12.4 (11.0-16.0) % Plt Count 282 (160-400) X10*3/uL MPV 8.5 L (9.4-12.3) fL Immature Gran % (Auto) 0.2 (0.0-0.4) % Neut % (Auto) 88.2 H (45-73) % Lymph % (Auto) 5.0 L (20-40) % Leslie % (Auto) 3.4 (2-11) % Eos % (Auto) 2.8 (0-4) % Baso % (Auto) 0.4 (0-2) % Lymph # (Auto) 0.5 L (1.2-4.9) X10*3/uL Leslie # (Auto) 0.3 (0.1-1.2) X10*3/uL Eos # (Auto) 0.3 (0.0-0.4) X10*3/uL Baso # (Auto) 0.0 (0.0-0.2) X10*3/uL Abs Immat Gran (auto) 0.02 (0.00-0.03) X10*3/uL Absolute Neuts (auto) 8.4 H (2.0-8.3) x10*3/uL Absolute Nucleated RBC 0.000 (0.0-0.012) X10*3/uL Nucleated RBC % (auto) 0.0 (0.0-0.2) /100WBC Sodium 137 (135-145) mmol/L Potassium 4.0 (3.3-5.1) mmol/L Chloride 105 (96-108) mmol/L Carbon Dioxide 20 L (22-29) mmol/L Anion Gap 16 (12-20) BUN 20 H (9-16) mg/dL Creatinine 0.68 (0.5-1.4) mg/dL Estim Creat Clear Calc 100.6 Estimated GFR > 60 Random Glucose 163 H (60-115) mg/dL Calcium 10.1 (8.4-10.2) mg/dL Total Bilirubin 0.8 (0.0-1.0) mg/dL AST 19 (5-31) U/L ALT 20 (0-31) U/L Alkaline Phosphatase 99 (39-117) U/L Troponin I High Sens < 2.7 < 2.7 (<3.5-17.0) ng/L Total Protein 7.8 (6.5-8.0) g/dL Albumin 4.5 (3.5-5.0) g/dL Lipase 11 (8-78) U/L Independent Interpretation I performed an independent interpretation of an: EKG (normal sinus rhythm, rate 90bpm, normal [place] interval and QTc) External Record Review External record reviewed: Inpatient record, Office record and Outpatient record Prescription Management I considered prescription management with: Other Discharge Plan Discharge Clinical Impression: Abdominal pain Patient Disposition: Home, Self-Care Instructions: Gastroesophageal Reflux Disease (DC), Abdominal Pain (ED) Additional Instructions: You have been evaluated in the emergency department today for abdominal pain. Your evaluation did not show evidence of medical conditions requiring emergent intervention at this time. Your symptoms are likely due to gastroesophageal reflux disease, also known as GERD. You are being prescribed a medication for this, please take the medication as prescribed. You can also use [id number] Maalox per package directions. Please schedule an appointment with your primary care physician. Return to the emergency department if you experience worsening or uncontrolled pain, fevers 100.4? F or greater, recurrent vomiting, inability to tolerate food or fluids by mouth, bloody stools or vomit, black or tarry stools, or any other concerning symptoms. Prescriptions: New famotidine 20 mg tablet 20 mg PO BID Qty: 14 0RF No Action azithromycin 250 mg tablet See Rx Instructions .ROUTE .COMPLEX Qty: 6 0RF Rx Instructions: For 250 mg dose pack: take 500 mg today (day 1), then 250 mg for 4 days (days 2-5) meloxicam 15 mg tablet 15 mg PO DAILY Qty: 14 0RF acetaminophen 500 mg tablet 1,000 mg PO Q6H PRN (Reason: fever or pain) Qty: 30 0RF ibuprofen 800 mg tablet 800 mg PO Q8H ferrous sulfate 325 mg (65 mg iron) tablet,delayed release (DR/EC) 325 mg PO DAILY fluoxetine 10 mg tablet 10 mg PO DAILY
[2023-12-22] MEDS: ondansetron HCL 4 MG/2 ML VIAL IVPUSH (07:53)
[2023-12-22] MEDS: 0.9 % Sodium Chloride 1,000 ML 999 ML IV (07:53)
[2023-12-22] MEDS: Magnesium Hydrox/Alum Hydrox 30 ML ORAL.SUSP PO (07:54)
[2023-12-22] MEDS: Lidocaine HCl Viscous 2 % 15 ML SOLUTION 10 ML MUCOUS MEM (07:54)
[2023-12-22 07:55] VITALS: BP 126/83; PULSE 86; RESP 16; O2SAT 99
--- NOTE | 2023-12-22 07:56 | PC.NURSE ---
Pt anxious, reassure and IV placed and medicated as charted. NS infusing
[2023-12-22 08:13] LABS: Troponin-I High Sensitivity < 2.7 ng/L (<3.5-17.0)
[2023-12-22 09:55] VITALS: BP 122/74; PULSE 80; RESP 18; TEMP 36.5; O2SAT 99
== END 2023-12-22 09:56 | disposition home or self-care (01) ==
PROVIDERS: Registered Nurse Emergency; Emergency Provider Student in an Organized Health Care Education/Training Program
DX: R10.9 Unspecified abdominal pain (principal); R10.13 Epigastric pain; I10 Essential (primary) hypertension; R07.9 Chest pain, unspecified; F41.8 Other specified anxiety disorders
CPT/HCPCS: 36415; 80053; 83690; 84484; 85025; 93005; 96361; 96374; 99284; 99285; J2405

== ENCOUNTER → 2023-12-22 03:00 | Outpatient (BNV) | payer MEDICAID, SELFPAY | PROVIDERS: Emergency Provider Student in an Organized Health Care Education/Training Program; Visit Provider Internal Medicine Cardiovascular Disease | DX: R10.9 Unspecified abdominal pain (principal) | CPT/HCPCS: 93010 ==

== ENCOUNTER 2024-07-14 10:32 | Emergency (ER) | payer MEDICAID, SELFPAY ==
--- NOTE | 2024-07-14 10:44 | ED_ITS ---
HPI - General Adult General Chief complaint: Anxiety Stated complaint: VISUAL HALLUCINATIONS,INCR CONFUSION,CALM/COOP Time Seen by Provider: 07/14/24 10:43 Source: patient and RN notes reviewed Mode of arrival: ambulatory Limitations: no limitations History of Present Illness ED Provider: Rajani Rincon PA-C HPI narrative: This is a 53-year-old female, with a past medical history of hypertension, anxiety, and depression, who presents emergency department with complaints of visual hallucinations and anxiety. Patient states that she was upstairs in her room and saw a man standing in the room. No history of this will hallucinations in the past. She sees her therapist biweekly. She states that she watched a scary movie yesterday in his unsure if this contributed to her symptoms that she thought today. She states that she thought this was a man for several seconds and when she blinked she noticed that it was a pile of laundry. She states that she has not been feeling ill recently. No fevers, chills, chest pain, blurred vision, headaches, dizziness, alcohol use, drug use. No urinary frequency, urgency, hematuria, or dysuria. She admits to having extra stress lately as she is taking care of her grand children 7 days a week. No other complaints or concerns at this time. MD complaint: Visual hallucination Onset (ago): hour(s) Radiation: non-radiation Quality: aching Pain Consistency: constant Relieving factors: none Exacerbating factors: none Associated symptoms: denies other symptoms Treatments prior to arrival: none Related Data Home Medications ?Medication ?Instructions ?Recorded ?Confirmed ferrous sulfate 325 mg (65 mg 325 mg PO DAILY 03/17/21 08/10/23 iron) tablet,delayed release fluoxetine 10 mg tablet 10 mg PO DAILY 03/17/21 08/10/23 ibuprofen 800 mg tablet 800 mg PO Q8H 03/17/21 08/10/23 Previous Rx's ?Medication ?Instructions ?Recorded azithromycin 250 mg tablet See Rx Instructions PO .COMPLEX #6 03/16/22 tabs acetaminophen 500 mg tablet 1,000 mg (2 x 500 mg) PO Q6H PRN 12/18/22 fever or pain #30 tabs meloxicam 15 mg tablet 15 mg PO DAILY #14 tabs 12/18/22 famotidine 20 mg tablet 20 mg PO BID #14 tabs 12/22/23 Allergies Allergy/AdvReac Type Severity Reaction Status Date / Time No Known Allergies Allergy Verified 07/14/24 10:57 Review of Systems 2 Review of Systems: Yes all other systems are reviewed and are negative Constitutional: Constitutional: Reports as per HPI ENT: Reports Normal hearing present Neurologic: Reports Normal hearing present and Denies confusion Psychiatric: Psychiatric: Denies confusion [facility] Past Medical History Attestation statement: The following information was validated with the patient. Medical History Anxiety HTN (hypertension) Anemia Depression Surgical History History of cholecystectomy Social History Social History Alcohol intake: former Patient Tobacco Use Status: Never used Tobacco Smoked in Last 30 Days: No Use of substances other than those prescribed or required for medical reasons: No Advance Directives: No Advance Directives Information Provided: Yes Do you have a plan to hurt others: No Plan Patient : No Gender identity: Female Physical Exam ED Vital Signs: Vital Signs - 24 hr 07/14/24 10:53 07/14/24 14:27 Temperature 98.1 F 98.0 F Pulse Rate 92 74 Respiratory Rate 18 18 Blood Pressure 113/78 116/71 Pulse Oximetry 99 99 Oxygen Delivery Method Room Air BMI result Body Mass Index 37.8 Const General: cooperative, comfortable and no acute distress; No confusion or patient obtunded Orientation/consciousness: patient oriented x3, No confusion and No patient obtunded Limitations: no limitations [facility] Head: Yes normal to inspection, Yes normocephalic and Yes atraumatic Ears: hearing grossly normal bilaterally General nose exam: Normal external nose present Face and sinus: Yes normal facial exam Mouth: Normal oral and palatal mucosa present, oropharynx normal and moist mucous membranes Throat: Yes posterior oropharynx normal Eyes General: appearance normal, both eyes and all related structures Eyelids: Yes eyelids normal Conjunctivae: conjunctivae normal Sclerae: sclerae normal Pupils: Equal, round and reactive pupils present EOM: EOMs intact bilaterally Neck Neck: Yes normal visual inspection, Yes full ROM, Yes no lymphadenopathy and Yes no meningeal signs Lymphatic: no lymphadenopathy noted Chest Chest palpation & inspection: normal inspection of the chest Resp Effort & Inspection: normal respiratory effort and able to speak in complete sentences Auscultation: clear to auscultation bilaterally, no crackles, no rales, no rhonchi and no wheezes Cardio Rate: regular rate Rhythm: regular rhythm Heart sounds: S1 normal heart sound present and S2 normal heart sound present GI Inspection: Yes normal to inspection Skin General skin exam: no rashes or lesions noted Trauma: no lacerations or abrasions Wounds: no wounds Neuro General: patient oriented x3, moves all extremities, no meningeal signs, no focal motor deficits, CN's II-XI intact bilaterally, No confusion and No patient obtunded Cranial nerves: Yes CN's II-XII intact bilaterally, Yes Equal, round and reactive pupils present, Yes Normal facial strength present, Yes Midline tongue present, Yes Symmetric palate elevation present, Yes Normal hearing present, Yes Ability to bilaterally rotate head present and Yes Ability to bilaterally elevate shoulders present Cognition (Neuro): normal cognition Gait exam (Neuro): Normal gait present Motor exam (neuro): 5/5 motor strength present throughout and Pronator motor function not present Extrem General: Yes normal to inspection Right upper extremity: normal to inspection Left upper extremity: normal to inspection Right lower extremity: normal to inspection Left lower extremity: normal to inspection Psych Appearance: grossly normal Mental Status: mental status grossly normal Speech and movement: Normal speech and movement present Affect: normal affect Attitude: cooperative Thought process: Normal thought process present Thought content: Normal thought content present Insight: Fair insight present (Psych) Judgement: Fair judgement present (Psych) Course Reevaluation(s) Reevaluation #1: Patient is alert and oriented x4, she has not had any return of these hallucinations. This was a isolated incident. She has no SI or HI. She has no threat to herself or any other individuals. Her workup today was reassuring. Patient states that she believes that her visual disturbance with secondary to a scary movie which she watched yesterday. She will follow-up with her psychiatrist, therapist, and primary care physician. She is feeling well and would like to be discharged home. At this time, I believe it is reasonable to safely discharge her home. Discussed case with my attending physician, Dr. Duque who agrees with this treatment plan. Patient stable for discharge. Time: 14:33 Medical Decision Making Medical Decision Making MDM Narrative: This is a 53-year-old female who presents emergency department with complaints of ? Visual hallucination since this morning. Patient states that she thought she saw a man standing in her room. She states that this lasted for several seconds and then she realized it was a pile of laundry. Denies history of similar symptoms in the past. She reports that she is otherwise feeling well. No other complaints or concerns at this time. She is alert and oriented x4, she is neurologically intact with no neurologic deficits on examination. She is ambulatory with steady gait. She has been feeling well. Denies any auditory hallucinations. She is not suicidal or homicidal. Denies any illicit drug use. No alcohol use disorder. She is a nonsmoker. She reports that she has been under stress taking care of her grandchildren 7 days a week. Labs were obtained, she has no leukocytosis, H&H stable, chemistry within normal limits. Urine with no evidence of infection. Urine drug screen negative. Ethyl alcohol negative. Viral swabs negative. Differential Diagnosis Differential Diagnoses: The differential diagnosis associated with the presentation includes Metabolic encephalopathy-unlikely, UTI, Admission/Observation Consideration of admission/observation: Escalation of care including admission/observation considered Lab Data [facility] Lab Attestation statement: I reviewed the patient's lab results. No leukocytosis, stable H&H, chemistry within normal limits. Urinalysis does not appear to be infectious. 07/14/24 11:49 07/14/24 11:49 Labs: Lab Results 07/14/24 Range/Units 11:49 WBC 5.6 (4.8-10.8) X10*3/uL RBC 4.23 (4.20-5.50) X10*6/uL Hgb 12.7 (12.0-16.0) g/dl Hct 36.8 L (37.0-47.0) % MCV 87.0 (80.0-98.0) fL MCH 30.0 (27.0-33.0) pg MCHC 34.5 (31.0-35.0) g/dl RDW 13.1 (11.0-16.0) % Plt Count 332 (160-400) X10*3/uL MPV 8.8 L (9.4-12.3) fL Immature Gran % (Auto) 0.4 (0.0-0.4) % Neut % (Auto) 68.0 (45-73) % Lymph % (Auto) 19.6 L (20-40) % [place] % (Auto) 6.1 (2-11) % Eos % (Auto) 5.0 H (0-4) % Baso % (Auto) 0.9 (0-2) % Lymph # (Auto) 1.1 L (1.2-4.9) X10*3/uL [place] # (Auto) 0.3 (0.1-1.2) X10*3/uL Eos # (Auto) 0.3 (0.0-0.4) X10*3/uL Baso # (Auto) 0.1 (0.0-0.2) X10*3/uL Abs Immat Gran (auto) 0.02 (0.00-0.03) X10*3/uL Absolute Neuts (auto) 3.8 (2.0-8.3) x10*3/uL Absolute Nucleated RBC 0.000 (0.0-0.012) X10*3/uL Nucleated RBC % (auto) 0.0 (0.0-0.2) /100WBC Sodium 140 (135-145) mmol/L Potassium 3.9 (3.3-5.1) mmol/L Chloride 107 (96-108) mmol/L Carbon Dioxide 25 (22-29) mmol/L Anion Gap 12 (12-20) BUN 13 (9-16) mg/dL Creatinine 0.78 (0.5-1.4) mg/dL Estim Creat Clear Calc 93.4 Estimated GFR > 60 Random Glucose 101 (60-115) mg/dL Calcium 10.0 (8.4-10.2) mg/dL Magnesium 2.0 (1.6-2.6) mg/dL Total Bilirubin 0.4 (0.0-1.0) mg/dL Direct Bilirubin 0.1 (0.0-0.5) mg/dL AST 23 (5-31) U/L ALT 23 (0-31) U/L Alkaline Phosphatase 101 (39-117) U/L Troponin I High Sens < 2.7 (<3.5-17.0) ng/L Total Protein 7.2 (6.5-8.0) g/dL Albumin 4.5 (3.5-5.0) g/dL Urine Color Yellow Urine Appearance Clear Urine pH 6.0 (5.0-9.0) Ur Specific [place] >= 1.030 H (1.005-1.025) Urine Protein Trace (Neg-Trace) mg/dL Urine Glucose (UA) Negative (Negative) mg/dL Urine Ketones Trace (Negative) mg/dL Urine Blood Negative (Negative) Urine Nitrite Negative (Negative) Ur Leukocyte Esterase Negative (Negative) Urine Opiates Screen Not Detected (Not Detect) Ur Buprenorphine Scrn Not Detected (Not Detect) ng/mL Ur Oxycodone Screen Not Detected (Not Detect) ng/mL Urine Methadone Screen Not Detected (Not Detect) ng/mL Urine Fentanyl Screen Not Detected (Not Detect) Ur Barbiturates Screen Not Detected (Not Detect) Ur Phencyclidine Scrn Not Detected (Not Detect) Ur Amphetamines Screen Not Detected (Not Detect) U Benzodiazepines Scrn Not Detected (Not Detect) Urine Cocaine Screen Not Detected (Not Detect) U Marijuana (THC) Screen Not Detected (Not Detect) Ethyl Alcohol < 10 mg/dL Influenza Type A (PCR) NEGATIVE (Negative) Influenza Type B (PCR) NEGATIVE (Negative) RSV RNA Qual (PCR) NEGATIVE (Negative) SARS-CoV-2 RNA (RT-PCR) NEGATIVE (Negative) Independent Interpretation I performed an independent interpretation of an: EKG Interpretation: EKG normal sinus rhythm at a ventricular rate of 82 beats per minute, no ST elevation or depression. External Record Review External record reviewed: Inpatient record, Office record, Outpatient record, Prior outpatient labs, Prior outpatient radiology, Primary care record and Outside ED record Discharge Plan Discharge Clinical Impression: Visual disturbance Patient Disposition: Home, Self-Care Instructions: Anxiety (ED) Additional Instructions: You were seen in the emergency department today. Your workup today was reassuring. It is very important to get plenty of sleep. It is unclear what caused you to have these symptoms however lack asleep, and increased stress can cause this to happen. Please drink plenty of fluids get plenty of rest. If any new or worsening symptoms occur including but not limited to chest pain, shortness breath, dizziness, headaches, other hallucinations, please seek emergent care. Follow-up with your psychiatrist/therapist/primary care physician. Prescriptions: No Action azithromycin 250 mg tablet See Rx Instructions .ROUTE .COMPLEX Qty: 6 0RF Rx Instructions: For 250 mg dose pack: take 500 mg today (day 1), then 250 mg for 4 days (days 2-5) famotidine 20 mg tablet 20 mg PO BID Qty: 14 0RF meloxicam 15 mg tablet 15 mg PO DAILY Qty: 14 0RF acetaminophen 500 mg tablet 1,000 mg PO Q6H PRN (Reason: fever or pain) Qty: 30 0RF ibuprofen 800 mg tablet 800 mg PO Q8H ferrous sulfate 325 mg (65 mg iron) tablet,delayed release (DR/EC) 325 mg PO DAILY fluoxetine 10 mg tablet 10 mg PO DAILY Print Language: Palestinian
[2024-07-14 10:53] VITALS: BP 113/78; PULSE 92; RESP 18; TEMP 36.7; O2SAT 99; BMI 37.8
--- NOTE | 2024-07-14 11:23 | ECG_ITS ---
Test Reason : ANXIETY Blood Pressure : / mmHG Vent. Rate : 082 BPM Atrial Rate : 082 BPM P-R Int : 158 ms QRS Dur : 080 ms QT Int : 374 ms P-R-T Axes : 046 013 042 degrees QTc Int : 436 ms Normal sinus rhythm Normal ECG When compared with ECG of 22-DEC-2023 03:00, No significant change was found Referred By: Rajani Rincon Electronically Signed By:Candelario Villalba
[2024-07-14 11:57] LABS: MANUAL DIFF FLAG NO
[2024-07-14 12:01] LABS: Appearance Urine Clear; Basophils Absolute Auto 0.1 X10*3/uL (0.0-0.2); Basophils Percent Auto 0.9 % (0-2); Color Urine Yellow; Eosinophils Absolute Auto 0.3 X10*3/uL (0.0-0.4); Glucose Urine UA Negative (Negative); Hematocrit 36.8 % (37.0-47.0); Hemoglobin 12.7 g/dl (12.0-16.0); Imm Gran Abs Auto 0.02 X10*3/uL (0.00-0.03); Imm Gran Pct Auto 0.4 % (0.0-0.4); Leukocyte Esterase Urine Negative (Negative); Lymphocytes Absolute Auto 1.1 X10*3/uL (1.2-4.9); Lymphocytes Percent Auto 19.6 % (20-40); Mean Corpuscular HGB Conc 34.5 g/dl (31.0-35.0); Mean Platelet Volume 8.8 fL (9.4-12.3); Monocytes Absolute Auto 0.3 X10*3/uL (0.1-1.2); Monocytes Percent Auto 6.1 % (2-11); Neutrophils Absolute Auto 3.8 x10*3/uL (2.0-8.3); Nitrite Urine Negative (Negative); Platelet Count 332 X10*3/uL (160-400); Red Blood Count 4.23 X10*6/uL (4.20-5.50); Red Cell Distribution Width 13.1 % (11.0-16.0); Specific Gravity - Urine >= 1.030 (1.005-1.025); Urine Blood Negative (Negative); Urine Ketones Trace mg/dL (Negative); Urine Protein Trace mg/dL (Neg-Trace); White Blood Count 5.6 X10*3/uL (4.8-10.8)
[2024-07-14 12:13] LABS: Amphetamine Screen Urine Not Detected (Not Detect); Barbiturates, Urine Not Detected (Not Detect); Benzodiazepines Screen Urine Not Detected (Not Detect); Buprenorphine Scr Not Detected (Not Detect); Cannabinoid Screen Urine Not Detected (Not Detect); Cocaine Screen Urine Not Detected (Not Detect); Fentanyl, urine Not Detected (Not Detect); Methadone Screen, Urine Not Detected (Not Detect); Opiate Screen Urine Not Detected (Not Detect); Oxycodone Screen Urine Not Detected (Not Detect); Phencyclidine Screen Urine Not Detected (Not Detect)
[2024-07-14 12:14] LABS: Ethanol < 10 mg/dL
[2024-07-14 12:16] LABS: Alanine Aminotransferase 23 U/L (0-31); Albumin Level 4.5 g/dL (3.5-5.0); Alkaline Phosphatase 101 U/L (39-117); Anion Gap 12 (12-20); Aspartate Amino Transferase 23 U/L (5-31); Bilirubin Direct 0.1 mg/dL (0.0-0.5); Bilirubin Total 0.4 mg/dL (0.0-1.0); Blood Urea Nitrogen 13 mg/dL (9-16); Carbon Dioxide 25 mmol/L (22-29); Chloride 107 mmol/L (96-108); Creatinine Clr Calc Pharmacy 93.4; Estimated Glomerular Filt Rate > 60; Glucose Random 101 mg/dL (60-115); Potassium 3.9 mmol/L (3.3-5.1); Sodium 140 mmol/L (135-145); Total Protein 7.2 g/dL (6.5-8.0)
[2024-07-14 12:23] LABS: Troponin-I High Sensitivity < 2.7 ng/L (<3.5-17.0)
[2024-07-14 12:36] LABS: Influenza A PCR NEGATIVE (Negative); Influenza B PCR NEGATIVE (Negative); Resp Syncy Virus RNA Qual PCR NEGATIVE (Negative); SARS COV2 PCR INHOUSE NEGATIVE (Negative)
[2024-07-14 14:27] VITALS: BP 116/71; PULSE 74; RESP 18; TEMP 36.7; O2SAT 99
[2024-07-14 14:42] VITALS: BP 116/71; PULSE 74; RESP 18; TEMP 36.6; O2SAT 98
== END 2024-07-14 14:43 | disposition home or self-care (01) ==
PROVIDERS: Physician Assistant Medical; Emergency Provider Emergency Medicine; PCP Internal Medicine
DX: R44.1 Visual hallucinations (principal); H53.8 Other visual disturbances; F41.1 Generalized anxiety disorder; R41.0 Disorientation, unspecified; Z79.899 Other long term (current) drug therapy; Z03.818 Encounter for observation for suspected exposure to other biological agents ruled out
CPT/HCPCS: 0241U; 36415; 80048; 80076; 80307; 81003; 83735; 84484; 85025; 93005; 99284

== ENCOUNTER → 2024-07-14 11:23 | Outpatient (BNV) | payer MEDICAID, SELFPAY | PROVIDERS: Emergency Provider Emergency Medicine; PCP Internal Medicine; Visit Provider Internal Medicine Cardiovascular Disease | DX: F41.9 Anxiety disorder, unspecified (principal) | CPT/HCPCS: 93010 ==

== ENCOUNTER 2025-03-26 15:11 | Emergency (ER) | payer MEDICAID, SELFPAY ==
--- NOTE | ~2025-03-26 | XR_ITS ---
EXAMINATION: XR TOES 2 OR MORE VIEWS RIGHT HISTORY: 1st toe trauma COMPARISON: There are no prior studies available for comparison. FINDINGS: Three views of the right great toe are submitted. Osseous mineralization is normal. A faint linear lucency is seen through the distal phalanx suggestive of a nondisplaced fracture. The joint spaces are preserved. The soft tissues are unremarkable. XR/XR toe RT min 2V IMPRESSION: Possible nondisplaced fracture of the distal phalanx. Electronically signed by: Quoc Bailon MD 03/26/2025 03:50 PM EDT
[2025-03-26 15:19] VITALS: BP 132/104; PULSE 97; RESP 18; TEMP 36.7; O2SAT 96; BMI 34.8
--- NOTE | 2025-03-26 15:20 | ED.GENADULT ---
HPI - General Adult General Chief complaint: Extremity Injury, Lower Stated complaint: right foot toe nail came off Time Seen by Provider: 03/26/25 16:53 Source: patient Mode of arrival: ambulatory Limitations: no limitations History of Present Illness ED Provider: Treasure Rodriguez PA-C HPI narrative: 54-year-old female with history of depression, anxiety, HTN, anemia presents to the ED due to right great toe pain. Patient states just prior to arrival, she opened a heavy door with strong force when it ran over her great toe stubbing her toe and ripping her nail off. Patient states she does not know when her last tetanus shot was, upon chart review patient received last Tdap in 2019. Will give today in the department. Patient denies any other physical complaints. MD complaint: toe pain Onset (ago): hour(s) (1) Location: right and lower extremity (Right great toe) Radiation: non-radiation Severity: moderate Quality: aching Pain Consistency: constant Relieving factors: none Exacerbating factors: movement Associated symptoms: denies other symptoms Treatments prior to arrival: none Related Data Home Medications ?Medication ?Instructions ?Recorded ?Confirmed ferrous sulfate 325 mg (65 mg 325 mg PO DAILY 03/17/21 08/10/23 iron) tablet,delayed release fluoxetine 10 mg tablet 10 mg PO DAILY 03/17/21 08/10/23 ibuprofen 800 mg tablet 800 mg PO Q8H 03/17/21 08/10/23 Previous Rx's ?Medication ?Instructions ?Recorded azithromycin 250 mg tablet See Rx Instructions PO .COMPLEX #6 03/16/22 tabs acetaminophen 500 mg tablet 1,000 mg (2 x 500 mg) PO Q6H PRN 12/18/22 fever or pain #30 tabs meloxicam 15 mg tablet 15 mg PO DAILY #14 tabs 12/18/22 famotidine 20 mg tablet 20 mg PO BID #14 tabs 12/22/23 amoxicillin 500 mg-potassium 1 tab PO BID 5 days #10 tabs 03/26/25 clavulanate 125 mg tablet (Augmentin) Allergies Allergy/AdvReac Type Severity Reaction Status Date / Time No Known Allergies Allergy Verified 03/26/25 15:21 Review of Systems Review of Systems: CONST: Negative for fever, body aches and chills. HENT: Negative for neck pain/stiffness, headache, congestion, sore throat, swelling. EYES: Negative for discharge/pain or vision changes. RESP: Negative for cough/hemoptysis and shortness of breath. CV: Negative chest pain, difficulty breathing, palpitations. ABD: Negative pain, nausea, vomiting. : Negative increase frequency, dysuria, blood in urine or stool. MUSC: Negative for muscle aches, edema. POS R toe pain SKIN: Negative rash, lesions/sores. NEURO: Negative headache, dizziness, weakness. Yes all other systems are reviewed and are negative [facility] Past Medical History Attestation statement: The following information was validated with the patient. Source: old records reviewed and nursing notes reviewed Medical History Anxiety HTN (hypertension) Anemia Depression Surgical History History of cholecystectomy Social History Social History Alcohol intake: former Patient Tobacco Use Status: Never used Tobacco Advance Directives: No Advance Directives Information Provided: No Do you have a plan to hurt others: No Plan Gender identity: Female Physical Exam ED Vital Signs: Vital Signs - 24 hr 03/26/25 15:19 Temperature 98.0 F Pulse Rate 97 Respiratory Rate 18 Blood Pressure 132/104 H Pulse Oximetry 96 Oxygen Delivery Method Room Air BMI result Body Mass Index 34.8 GENERAL APPEARANCE: ?AxOx4, uncomfortable appearing, no acute distress. HEENT: ?NC, AT. MMM. EOMI, clear conjunctiva, oropharynx clear. HEART:? Normal rate and regular rhythm, normal S1/S1, no m/r/g LUNGS:? CTAB, moving air well. No crackles or wheezes are heard. EXTREMITIES: ?Without cyanosis, clubbing or edema. Right toe with nail hanging on by a small amount of skin, actively bleeding, sensation intact, pedal pulses 2+. Limited ROM due to pain. NEUROLOGICAL: ?Grossly nonfocal. Alert and oriented, moving all 4 extremities. Observed to ambulate with normal gait. Skin: ?Warm and dry without any rash. Course Course Course Narrative: RME, this is a rapid medical exam performed by Reginald Hernandez please refer to primary provider for complete H&P- 54-year-old female presents for evaluation of right great toe injury. She opened a door onto the toe and believes she ripped the nail off. Plan for x-ray Medical Decision Making Medical Decision Making MDM Narrative: 54-year-old female with history of depression, anxiety, HTN, anemia presents to the ED due to right great toe pain. Patient states just prior to arrival, she opened a heavy door with strong force when it ran over her great toe stubbing her toe and ripping her nail off. Patient states she does not know when her last tetanus shot was, upon chart review patient received last Tdap in 2019. Will give today in the department. Patient denies any other physical complaints. VSS, in no acute distress, patient is uncomfortable due to pain, nontoxic appearing. On physical exam right great toe with nail avulsion, actively bleeding, tender to palpation, limited ROM due to pain, pedal pulses 2+, sensation intact. Foot cleaned with sterile saline, and iodine. Right toe x-ray reveals possible distal phalanx fracture. Xeroform dressing placed over R great toe, with nonstick dressing, wrapped in place. Will discharge with walking boot, and orthopedic follow up. Counseled patient on keeping dressing in place for 24 hours, not showering tonight, no pools, lakes, Ponds or any other bodies of water while nail bed is healing. Counseled patient on changing dressing once a day and importance of following up with ortho. Went over strict return precautions. Right toe x-ray reveals possible distal phalanx fracture. Patient medicated with 975 mg of p.o. Tylenol for pain management. Differential Diagnosis Differential Diagnoses: The differential diagnosis associated with the presentation includes Phalanx fracture Crush injury Subungual hematoma Toenail avulsion Admission/Observation Consideration of admission/observation: Escalation of care including admission/observation considered Independent Interpretation I performed an independent interpretation of an: Plain X-Ray Radiology Impression Discussion of test interpretation with radiology: I have reviewed the radiologist's reading. Radiologist Impression: FINDINGS: Three views of the right great toe are submitted. Osseous mineralization is normal. A faint linear lucency is seen through the distal phalanx suggestive of a nondisplaced fracture. The joint spaces are preserved. The soft tissues are unremarkable. XR/XR toe RT min 2V IMPRESSION: Possible nondisplaced fracture of the distal phalanx. Electronically signed by: Quoc Bailon MD 03/26/2025 03:50 PM EDT Dictated By: Quoc Bailon MD Signed By: <Electronically signed by Quoc Bailon MD in OV> 03/26/25 3855 External Record Review External record reviewed: Inpatient record, Office record and Outpatient record Chronic Conditions Patient?s care impacted by: Hypertension Discharge Plan Discharge Clinical Impression: Nail avulsion of toe, Fracture of phalanx of toe of right foot Patient Disposition: Home, Self-Care Instructions: Toe Fracture (ED), Nail Avulsion (ED) Additional Instructions: You were evaluated in the ED today after injury to your right great toe. The toe nail was removed while in the department. Your last Tdap vaccination was in 2019, due to this injury you will receive Tdap vaccination while in the department today. You were medicated with 975 mg of oral Tylenol for pain. Your foot was cleaned with sterile saline and iodine, dressed and wrapped for protection. You were given a walking boot to protect the toe. Please wear this while ambulating, you can remove the boot while sleeping at night. Please do not remove this dressing for 24 hours. Do not shower tonight or get the toe wet tonight. Please do not swim in pools, lakes, Ponds or any other natural body of water until the nailbed heals. You will be prescribed a 5 day course of an antibiotic called Augmentin to cover for bacterial infection. Please complete the entire course of this medication. For pain you can alternate Tylenol and Motrin every 6 hours. You can ice the area, and elevate for further pain management. Please call the orthopedic office to schedule an appointment for follow up. You should also follow up with your PCP to ensure improvement. Please return to the emergency department if you experience increased pain of the right toe, increased bleeding of the right toe, drainage of pus from the right toe, increased difficulty walking, increased swelling of the right toe, fevers over 100.4?, chest pain, shortness of breath, nausea, vomiting or any other new/worsening/concerning symptoms. Prescriptions: New amoxicillin-pot clavulanate [Augmentin] 500-125 mg tablet 1 tab PO BID 5 Days Qty: 10 0RF No Action azithromycin 250 mg tablet See Rx Instructions .ROUTE .COMPLEX Qty: 6 0RF Rx Instructions: For 250 mg dose pack: take 500 mg today (day 1), then 250 mg for 4 days (days 2-5) famotidine 20 mg tablet 20 mg PO BID Qty: 14 0RF meloxicam 15 mg tablet 15 mg PO DAILY Qty: 14 0RF acetaminophen 500 mg tablet 1,000 mg PO Q6H PRN (Reason: fever or pain) Qty: 30 0RF ibuprofen 800 mg tablet 800 mg PO Q8H ferrous sulfate 325 mg (65 mg iron) tablet,delayed release (DR/EC) 325 mg PO DAILY fluoxetine 10 mg tablet 10 mg PO DAILY Referrals: [facility] [Provider Group] Print Language: Italian
--- OUTSIDE RECORDS SUMMARY | 2025-03-26 16:53 | XMS_ITS | Clinical Summary ---
Author Organization [employer] Address [address] [facility] [address] [place] [address] Care Team Providers Care Special Services Agent Name Role Phone Unavailable Primary Care Provider Unavailabl e Immunizations Immunization Administration Dates Next Due Pfizer Covid-19 Vaccine 12+ 06/02/2021, Pfizer Covid-19 Vaccine 12+ Bivalent 11/10/2022 Social History Tobacco Use Types Packs/Day Years Used Date Smoking Tobacco: Never Assessed Comments Unknown Sex and Gender Information Value Date Recorded Sex Assigned at Female 07/25/2022 10:14 AM EDT Legal Sex Female 10:14 AM EDT Gender Identity Female 07/25/2022 10:14 AM EDT Sexual Orientation Choose not to disclose 2021 10:14 AM EDT Plan of Treatment Health Maintenance Due Date Last Done Comments CT Colonography 1971 Colonoscopy 1971 Colorectal Cancer Screening 1971 Depression Screening 1971 FIT DNA/Cologuard 1971 FIT 1971 FOBT 1971 HIV Screening 1971 SDOH Screening 1971 Sigmoidoscopy 1971 Disability Screening 1971 Alcohol/Substance Use Screening 1983 Tobacco Screening 1983 Hepatitis C Screening 12/09/1989 DTaP/Tdap/Td Vaccines (1 - Tdap) 12/09/1990 Hepatitis B Vaccines (1 of 3 - 19+ 3-dose series) 12/09/1990 Pap Smear 12/09/1992 Cervical Cancer Screening 12/09/2001 HPV/Cotest 12/09/2001 Mammogram 2011 Pneumococcal Vaccine: 50+ Years (1 of 1 - PCV) 12/09/2021 Zoster Vaccines (1 of 2) 12/09/2021 COVID-19 Vaccine (4 - 2023-2 5 season) 2024 11/10/2022, 06/02/2021, 05/12/2021 Influenza Vaccine (Season Ended) 2025 RSV Patients and Patients Aged 60 years or older (1 - 1-dose 75+ series) 12/09/2046 HIB Vaccines Aged Out No longer eligi ble based on patient's age to complete this topic HPV Vaccines Aged Out No longer eligi ble based on patient's age to complete this topic Hepatitis A Vaccines Aged Out No long er eligible based on patient's age to complete this topic IPV Vaccines Aged Out No longer eligi ble based on patient's age to complete this topic Meningococcal B Vaccine Aged Out No l onger eligible based on patient's age to complete this topic Meningococcal Vaccine Aged Out No jenna luis fernando eligible based on patient's age to complete this topic RSV under 20 months Aged Out No longe r eligible based on patient's age to complete this topic Rotavirus Vaccines Aged Out No longer eligible based on patient's age to complete this topic Insurance [facility] STAND[facility]
[2025-03-26] MEDS: Diphth,Pertus(ACell),Tet Adult 0.5 ML SYRINGE IM (17:41)
[2025-03-26 17:42] VITALS: BP 134/70; PULSE 80; RESP 16; TEMP 36.9; O2SAT 99
[2025-03-26 18:20] VITALS: BP 134/70; PULSE 80; RESP 16; TEMP 36.9; O2SAT 99
== END 2025-03-26 18:21 | disposition home or self-care (01) ==
PROVIDERS: Emergency Provider Emergency Medicine Emergency Medical Services; PCP Internal Medicine
DX: S92.404A Nondisplaced unspecified fracture of right great toe, initial encounter for closed fracture (principal); S91.201A Unspecified open wound of right great toe with damage to nail, initial encounter; W20.8XXA Other cause of strike by thrown, projected or falling object, initial encounter; M79.674 Pain in right toe(s); Y93.89 Activity, other specified; Y92.9 Unspecified place or not applicable; Y99.9 Unspecified external cause status; Z23 Encounter for immunization
CPT/HCPCS: 11730; 73660; 90471; 90715; 99284

== ENCOUNTER → 2025-03-26 15:20 | Outpatient (BNV) | payer MEDICAID, SELFPAY | PROVIDERS: PCP Internal Medicine; Visit Provider Radiology Diagnostic Radiology | DX: S90.931A Unspecified superficial injury of right great toe, initial encounter (principal) | CPT/HCPCS: 73660 ==

== ENCOUNTER 2025-09-10 07:56 | Emergency (ER) | payer OTHER, SELFPAY ==
[2025-09-10 08:03] VITALS: BP 161/90; PULSE 86; RESP 18; TEMP 36.6; O2SAT 100; BMI 31.9
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
--- OUTSIDE RECORDS SUMMARY | 2025-09-10 08:34 | XMS_ITS | Clinical Summary ---
Author Organization [employer] Address [address] [place] [address] Care Team Providers Care Animal Ride Manager Name Role Phone Unavailable Primary Care Provider [...] of 2) 12/09/2021 COVID-19 Vaccine (4 - 2024-2 6 season) 2025 11/10/2022, 06/02/2021, 05/12/2021 Influenza Vaccine (#1) 2025 RSV Patients and Patients Aged 60 [...] patient's age to complete this topic Insurance [facility] STANDARD
[2025-09-10 08:59] VITALS: BP 161/90; PULSE 86; RESP 18; TEMP 36.6; O2SAT 100
== END 2025-09-10 09:00 | disposition home or self-care (01) ==
PROVIDERS: Emergency Provider Emergency Medicine Emergency Medical Services; PCP Internal Medicine
DX: S16.1XXA Strain of muscle, fascia and tendon at neck level, initial encounter (principal); V43.52XA Car driver injured in collision with other type car in traffic accident, initial encounter; Y93.9 Activity, unspecified; Y92.414 Local residential or business street as the place of occurrence of the external cause
CPT/HCPCS: 99283